=== PATIENT | male | born 1950 | race Caucasian/White ===

== ENCOUNTER 2018-01-10 09:18 | Inpatient (IN) | payer MEDICARE, OTHER ==
[~2018-01-10] VITALS: Ht 182.9 cm; Wt 147.5 kg
[~2018-01-10 09:18] MED LIST: ALBU2.5V5 NEB; ALLO100T PO; ALLO300T PO; ASCO500T3 PO; ASPI-630 PO; BUDE0.5A3 IH; BUDE10.2 IH; CETI5SOL PO; COLC0.6T34 PO; FOLI1TAB16 PO; FURO-68 PO; FURO-69 PO; HYDR-2868 PO; LISI-338 PO; LISI40TA PO; LOPE1LIQ7 PO; METO100T7 PO; METO25TA4 PO; MUPI1OIN NS; NICO2LOZ BC; NITR0.4T SL; NYST1000 PO; OXYC5CAP PO; OXYC5TAB95 PO; SERT100T PO; SERT50TA PO; THIA100T8 PO; UREA198C TP; ZINC30OI TP
[2018-01-10 09:51] LABS: BASO # 0.1 x10^3/uL (0.0-0.2); BASO % 1 % (0-3); EOS # 0.4 x10^3/uL (0.0-0.7); EOS % 1 % (0-3); HEMATOCRIT 37.7 % (39.0-53.0); LYMPH # 0.6 x10^3/uL (1.0-4.8); LYMPH % 2 % (24-48); MEAN CORPUSCULAR HEMOGLOBIN 28 pg (25-35); MEAN CORPUSCULAR HGB CONC 32 g/dL (31-37); MEAN CORPUSCULAR VOLUME 89 fL (79-100); MONO # 0.9 x10^3/uL (0.0-1.1); MONO % 4 % (0-9); NEUT # 24.2 x10^3uL (1.8-7.7); NEUT % 92 % (31-73); PLATELET COUNT 143 x10^3/uL (140-400); RED BLOOD COUNT 4.23 x10^6/uL (4.30-5.70); RED CELL DISTRIBUTION WIDTH 16.6 % (11.5-14.5); WHITE BLOOD COUNT 26.2 x10^3/uL (4.0-11.0)
[2018-01-10] MEDS ORDERED: methylPREDNISolone SOD SUCC PF 125 MG/2 ML VIAL. IV ONE (09:55)
[2018-01-10] MEDS ORDERED: IPRATRPIUM/ALBUTEROL 0.5/2.5MG 3 ML NEBU. NEB ONE (09:55)
--- NOTE | 2018-01-10 09:58 | RAD ---
EXAM: Chest one view. HISTORY: Shortness of breath, cough. COMPARISON: 03/21/2016. FINDINGS: A frontal view of the chest is obtained. There is rotation to the right. The inspiration is small with bibasilar atelectasis. There are calcified granulomas in subcarinal lymph nodes and the right base. There is no pneumothorax or pleural effusion. The heart is mildly enlarged. IMPRESSION: 1. Mild cardiomegaly. Small inspiration with basilar atelectasis.
[2018-01-10 09:59] LABS: BGAS PH 7.38 (7.35-7.46)
--- NOTE | 2018-01-10 10:04 | PHYS DOC ---
Past History Past Medical History: Anemia, Arthritis, CHF, COPD, Depression, Diverticulitis , Hypertension, Other Past Surgical History: Other Smoking: Cigarettes Alcohol Use: Occasionally Drug Use: None Adult General Chief Complaint Chief Complaint: SHORTNESS OF BREATH HPI HPI 67-year-old male patient resident of [facility] with 5 L of home oxygen and history of COPD and CHF brought in by EMS because of shortness of breath since this morning. Patient states he has had productive cough for the last few days and had intermittent episodes of substernal and left-sided chest pain during cough with radiation to his back. Patient complaining of chronic shortness of breath that getting worse since this morning. According to [facility] reports , patient had recent chest x-ray and labs and treated for 8 days of IM Rocephin that was finished couple days ago. Review of Systems Review of Systems Constitutional: Denies fever or chills [] Eyes: Denies change in visual acuity, redness, or eye pain [] HENT: Denies nasal congestion or sore throat [] Respiratory: Reports cough and shortness of breath Cardiovascular: No additional information not addressed in HPI [] GI: Denies abdominal pain, nausea, vomiting, bloody stools or diarrhea [] : Denies dysuria or hematuria [] Musculoskeletal: Denies back pain or joint pain [] Integument: Denies rash or skin lesions [] Neurologic: Denies headache, focal weakness or sensory changes [] Endocrine: Denies polyuria or polydipsia [] All other systems were reviewed and found to be within normal limits, except as documented in this note. Current Medications Current Medications Current Medications Medications (Trade) Dose Ordered Sig/Elke Start Time Stop Time Status Last Admin Dose Admin Albuterol/ Ipratropium (Duoneb) 3 ml 1X ONCE 01/10/18 09:55 01/10/18 09:56 DC 01/10/18 09:42 3 ML Ceftriaxone Sodium 1 gm/ Sodium Chloride 50 ml @ 100 mls/hr 1X ONCE 01/10/18 10:00 01/10/18 10:29 UNV Methylprednisolone Sodium Succinate (SOLU-Medrol 125MG VIAL) 125 mg 1X ONCE 01/10/18 09:55 01/10/18 09:56 DC 01/10/18 09:42 125 MG Allergies Allergies Allergies Coded Allergies Type Severity Reaction Last Updated Verified Penicillins Allergy Intermediate 11/19/15 Yes azithromycin Allergy Intermediate 11/19/15 Yes I S O L A T I O N *CONTACT* Allergy Unknown 11/20/15 Yes Physical Exam Physical Exam Constitutional: Moderate distress, non-toxic appearance, T-99.6 [] HENT: Normocephalic, atraumatic, bilateral external ears normal, oropharynx moist, no oral exudates, nose normal. [] Eyes: PERRLA, EOMI, conjunctiva normal, no discharge. [] Neck: Normal range of motion, no tenderness, supple, no stridor. [] Cardiovascular: Tachycardia, no murmur [] Lungs & Thorax: Moderate respiratory distress with intercostal retraction and tachypnea, bilateral wheezing and rhonchi, decrease of air movement Abdomen: Bowel sounds normal, soft, no tenderness, no masses, no pulsatile masses. [] Skin: Warm, dry, no erythema, no rash. [] Back: No tenderness, no CVA tenderness. [] Extremities: No tenderness, no cyanosis, no clubbing, ROM intact, bilateral lower extremity in old and dirty dressing and after opening the dressing, there was old eczematic skin without sign of cellulitis Neurologic: Alert and oriented X 3, normal motor function, normal sensory function, no focal deficits noted. [] Psychologic: Affect normal, judgement normal, mood normal. [] Current Patient Data Lab Results Laboratory Tests Test 01/10/18 09:26 01/10/18 09:40 White Blood Count 26.2 x10^3/uL (4.0-11.0) H Red Blood Count 4.23 x10^6/uL (4.30-5.70) L Hemoglobin 12.0 g/dL (13.0-17.5) L Hematocrit 37.7 % (39.0-53.0) L Mean Corpuscular Volume 89 fL (79-100) Mean Corpuscular Hemoglobin 28 pg (25-35) Mean Corpuscular Hemoglobin Concent 32 g/dL (31-37) Red Cell Distribution Width 16.6 % (11.5-14.5) H Platelet Count 143 x10^3/uL (140-400) Neutrophils (%) (Auto) 92 % (31-73) H Lymphocytes (%) (Auto) 2 % (24-48) L Monocytes (%) (Auto) 4 % (0-9) Eosinophils (%) (Auto) 1 % (0-3) Basophils (%) (Auto) 1 % (0-3) Neutrophils # (Auto) 24.2 x10^3uL (1.8-7.7) H Lymphocytes # (Auto) 0.6 x10^3/uL (1.0-4.8) L Monocytes # (Auto) 0.9 x10^3/uL (0.0-1.1) Eosinophils # (Auto) 0.4 x10^3/uL (0.0-0.7) Basophils # (Auto) 0.1 x10^3/uL (0.0-0.2) Platelet Estimate Pending Lactic Acid Level 1.8 mmol/L (0.4-2.0) Blood pH 7.38 (7.35-7.46) Blood Gas PCO2 54 mmHg (35-46) H Blood Gas PO2 73 mmHg (80-100) L Blood Gas HCO3 32 mmol/L (21-28) H Arterial Bld O2 Saturation (Calc) 94 % (92-99) FiO2 36 % EKG EKG EKG interpreted by me. EKG at 0920 showed sinus tachycardia at rate of 101, poor R-wave progress in anterolateral leads, no acute ST and T-wave abnormalities Radiology/Procedures Radiology/Procedures [ [address] [address] IMAGING REPORT Signed PATIENT: GLEN MAXWELL ACCOUNT: [id number] : 1950 LOCATION: ER AGE: 67 SEX: M EXAM STATUS: PRE ER ORD. PHYSICIAN: GUILHERME SLAUGHTER MD REASON: SOB PROCEDURE: PORTABLE CHEST 1V EXAM: Chest one view. HISTORY: Shortness of breath, cough. COMPARISON: 03/21/2016. FINDINGS: A frontal view of the chest is obtained. There is rotation to the right. The inspiration is small with bibasilar atelectasis. There are calcified granulomas in subcarinal lymph nodes and the right base. There is no pneumothorax or pleural effusion. The heart is mildly enlarged. IMPRESSION: 1. Mild cardiomegaly. Small inspiration with basilar atelectasis. DICTATED AND SIGNED BY: ADAIR ROD MD DATE: 01/10/18 0954 CC: GUILHERME SLAUGHTER MD; PCP,NO ~ ] Course & Med Decision Making Course & Med Decision Making Pertinent Labs and Imaging studies reviewed. (See chart for details) Evaluation of patient in ER showed 67-year-old male patient resident of [facility] with COPD brought in because of shortness of breath. Patient had tachycardia and low-grade fever with white count of 26,000 without hypotension or addition of lactic acid. Chest x-ray did not show infiltration. BNP was elevated. Levaquin was started in ER but patient was not treated with IV fluid because of CHF and no sign of hypotension. Patient had respiratory distress that partially improved but because of having mild intercostal retractions respiratory distress, BiPAP was ordered. Dr. Cortez was informed at 1015 and agreed with plan of admission with diagnosis of sepsis and COPD and CHF exacerbation. Dragon Disclaimer Dragon Disclaimer This electronic medical record was generated, in whole or in part, using a voice recognition dictation system. Departure Departure: Impression: Primary Impression: Sepsis Additional Impressions: COPD exacerbation CHF exacerbation Renal insufficiency Respiratory distress Disposition: ADMITTED INPATIENT (At 1015) Admitting Physician: Nevaeh Cortez Condition: GUARDED Referrals: PCP,NO (PCP) Critical Care Time Critical care time was [80] minutes exclusive of procedures. Problem Qualifiers GUILHERME SLAUGHTER MD Jan 10, 2018 10:04
[2018-01-10 10:08] LABS: ALBUMIN 3.2 g/dL (3.4-5.0); ALBUMIN/GLOBULIN RATIO 0.9 (1.0-1.7); CALCIUM 8.8 mg/dL (8.5-10.1); CREATININE 2.6 mg/dL (0.7-1.3); GFR 24.7; MAGNESIUM 1.6 mg/dL (1.8-2.4); POTASSIUM 4.2 mmol/L (3.5-5.1); TOTAL BILIRUBIN 0.4 mg/dL (0.2-1.0); TOTAL PROTEIN 6.9 g/dL (6.4-8.2)
[2018-01-10 10:16] LABS: BACTERIA,URINE 0 /HPF (0-FEW); BILIRUBIN,URINE NEG (NEG); CLARITY,URINE CLEAR; COLOR,URINE YELLOW; GLUCOSE,URINE NEG (NEG); NITRITE,URINE NEG (NEG); RBC,URINE 0 /HPF (0-2); SQUAMOUS EPITHELIAL CELL,UR OCC /LPF; UROBILINOGEN,URINE 0.2 mg/dL (0.2 mg/dL); WBC,URINE RARE /HPF (0-4)
[2018-01-10] MEDS ORDERED: cefTRIAXone IV Push 1 GM VIAL. IVP ONE (10:30)
[2018-01-10 10:32] LABS: % BANDS 2 % (0-9); % LYMPHS 5 % (24-48); % MONOS 5 % (0-10); % SEGS 88 % (35-66); PLT ESTIMATE ADEQUATE (ADEQUATE)
[2018-01-10] MEDS: IPRATRPIUM/ALBUTEROL 0.5/2.5MG 3 ML NEBU. NEB SCH ×3 (10:42→20:15)
[2018-01-10] MEDS ORDERED: MAGNESIUM SULFATE 2GM 50 ML IV ONE (12:00)
[2018-01-10] MEDS: ALBUTEROL SULFATE 2.5 MG/3 ML NEBU. NEB SCH ×2 (12:00→18:27)
[2018-01-10] MEDS ORDERED: ALBUTEROL SULFATE 2.5 MG/3 ML NEBU. NEB SCH (12:15)
[2018-01-10] MEDS ORDERED: oxyCODONE IR 5 MG TABLET PO PRN (12:15)
[2018-01-10] MEDS: IV NORMAL SALINE 1,000ML 1,000 ML IV SCH (12:24)
[2018-01-10] MEDS ORDERED: VANCOMYCIN 2 GM in IV NORMAL SALINE 500ML 500 ML IV ONE (13:00)
--- NOTE | 2018-01-10 13:17 | EKG ---
[address] [address] Test Date: 2018-01-10 Test Time: 09:30:11 Pat Name: GLEN MAXWELL Department: Room: Gender: M [employer]er: RAUDEL : 1950 Requested By: GUILHERME SLAUGHTER Order Number: [id number] Reading MD: Measurements Intervals [place] Rate: 101 P: AK: QRS: 45 QRSD: 76 T: 70 QT: 334 QTc: 434 Interpretive Statements IRREGULAR RHYTHM, NO P-WAVE FOUND QRS(T) CONTOUR ABNORMALITY CONSIDER ANTEROLATERAL MYOCARDIAL DAMAGE CONSIDER INFERIOR MYOCARDIAL DAMAGE POSSIBLY ABNORMAL ECG RI6.01 No previous ECG available for comparison
[2018-01-10] MEDS ORDERED: MEROPENEM 500 MG in IV NORMAL SALINE 50ML 50 ML IV SCH (14:00)
[2018-01-10] MEDS: oxyCODONE IR 5 MG TABLET PO SCH ×2 (14:00→21:57)
[2018-01-10] MEDS: NYSTATIN 100,000 UNITS/ML ORAL SUSPENSION 60ML BOTTLE. PO SCH ×2 (14:00→22:29)
[2018-01-10] MEDS: UREA 20% TP SCH ×2 (14:00→22:29)
[2018-01-10] MEDS ORDERED: methylPREDNISolone SOD SUCC PF 125 MG/2 ML VIAL. IV SCH (14:00)
[2018-01-10] MEDS: methylPREDNISolone SOD SUCC PF 40 MG/ML VIAL. IV SCH ×2 (14:10→21:40)
[2018-01-10] MEDS: VANCOMYCIN PER PHARMACY MC PRN (14:11)
--- NOTE | 2018-01-10 14:54 | HP ---
ADMIT DATE: 01/10/2018 HISTORY OF PRESENT ILLNESS: The patient is a 67-year-old male patient, resident at a shelter facility, who was brought to the Emergency Room with a complaint of shortness of breath, cough with yellowish sputum. He denied any chills, rigors or fever. He was evaluated in the Emergency Room and was found to have marked leukocytosis with a white cell count 26,000. His chemistry also showed that he has acute on chronic kidney injury and was admitted with COPD exacerbation, sepsis, the source of which is not clear. He has what seems to be bilateral lower extremity cellulitis. His chest x-ray apparently showed mild cardiomegaly, poor inspiratory effort with basal atelectasis. He was admitted with acute on chronic renal insufficiency and COPD exacerbation. PAST MEDICAL HISTORY: Significant for sepsis secondary to cellulitis and bacteremia from his lower legs. 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 Other medical problems include congestive heart failure, endocarditis with healed vegetation, severe right atrial enlargement, severe tricuspid regurgitation, mild mitral regurgitation, severe pulmonary hypertension with pulmonary artery pressure of 50-60 mm. He has had recurrent pleural effusion, chronic obstructive pulmonary disease, C. diff diarrhea, atrial fibrillation with rapid ventricular response, upper gastrointestinal bleed requiring 5 units of packed RBCs, acute kidney injury on chronic kidney disease. His baseline creatinine is 1.4-1.5, vitamin D deficiency, systolic and diastolic heart failure, hepatitis C, gout. He has septic arthritis and previous history of endocarditis. ALLERGIES: He is allergic to PENICILLIN and AZITHROMYCIN. FAMILY HISTORY: Noncontributory. SOCIAL HISTORY: He used to live in his own apartment, now he lives at [facility]. He is a heavy smoker and quit in September. He is also alcoholic. He is a . REVIEW OF SYSTEMS: As per history of present illness. PHYSICAL EXAMINATION: GENERAL: When I saw him on arrival to the ICU, the patient was clearly tachypneic, pale, but no jaundice, cyanosis or thyromegaly. No jugular venous distension. No lower limb edema. VITAL SIGNS: His heart rate was 89, blood pressure was 169/65, temperature was 98.5, respiratory rate 34, and oxygen saturation was 97% on 5 liters of oxygen by nasal cannula. HEAD, EYES, EARS, NOSE AND THROAT: Showed normocephalic, atraumatic. NECK: Supple. HEART: Showed normal first and second heart sounds with no gallop, rub or murmur. CHEST: Clear to auscultation. No crepitation or rhonchi. ABDOMEN: Distended, soft, nontender. No guarding or rigidity. No organomegaly. All hernial orifices intact. Bowel sounds normal. NEUROLOGIC: He was awake, alert, responding appropriately. Cranial nerves intact. EXTREMITIES: He moves upper extremities without difficulty, is mostly bed bound. He has a scooter. He is unable to walk. LABORATORY DATA: In the Emergency Room showed a white cell count 26,200, hemoglobin 12, hematocrit 38, MCV 89 and platelet count of 143,000. His arterial blood gases showed his pH was 7.38, pCO2 of 54, pO2 of 73, bicarbonate 32, and oxygen saturation was 94% on FiO2 of 36%. His chemistry showed serum sodium of 145, potassium 4.2, chloride 104, bicarbonate 34, anion gap of 7, BUN 72, creatinine 2.6, estimated GFR was 24 mL per minute, his glucose was 95, lactic acid was 1.8. Calcium was 8.8, magnesium 1.6. Total bilirubin, AST, ALT, alkaline phosphatase were normal. His beta natriuretic peptide was 6200. Total protein was 6.9, albumin was 3.2. His prothrombin time was 11.6, INR 1.1. Urinalysis was essentially unremarkable. His chest x-ray showed that he has poor inspiratory effort. There are calcified granulomas and subcarinal lymph nodes in the right base. There is no pneumothorax or pleural effusion. The heart is mildly enlarged. IMPRESSION AND PLAN: In summary, this is a 67-year-old male patient, a resident at [facility], who came in with shortness of breath. He was admitted with COPD exacerbation. Chest x-ray is normal. He has productive cough with yellowish sputum. He has also bilateral lower extremity cellulitis, acute on chronic kidney injury. I will start him on meropenem as well as vancomycin and continue all his other medication. Continue with bronchodilator and Solu-Medrol. Monitor him closely and repeat his labs tomorrow. JOSELUIS ZELAYA MD DR: CLAY/hakeem JOB#: [id number] / [id number]
[2018-01-10 15:36] VITALS: BP 183/70
[2018-01-10] MEDS ORDERED: ACETAMINOPHEN 325 MG TABLET PO PRN (16:00)
[2018-01-10] MEDS: MEROPENEM 500 MG in IV NORMAL SALINE 50ML 50 ML IV SCH ×2 (17:25→23:57)
[2018-01-10] MEDS ORDERED: METO50TA6 PO (18:21)
[2018-01-10] MEDS ORDERED: ARIP5TAB13 PO (18:21)
[2018-01-10] MEDS ORDERED: ESOM40CA PO (18:21)
[2018-01-10] MEDS ORDERED: IPRA3AMP NEB (18:21)
[2018-01-10] MEDS ORDERED: ACET325T9 PO (18:21)
[2018-01-10] MEDS ORDERED: BUME1TAB PO (18:21)
[2018-01-10] MEDS ORDERED: CARB15DR25 OP (18:21)
[2018-01-10] MEDS ORDERED: MENT5LOZ MM (18:21)
[2018-01-10] MEDS ORDERED: FERR325T14 PO (18:21)
[2018-01-10] MEDS ORDERED: UMEC62.5 IH (18:21)
[2018-01-10] MEDS ORDERED: MAGN2400 PO (18:21)
[2018-01-10 19:15] VITALS: BP 163/78
[2018-01-10] MEDS ORDERED: DICL100G18 TP (19:24)
[2018-01-10] MEDS ORDERED: NYST1000 PO (19:24)
[2018-01-10] MEDS ORDERED: CALC500T10 PO (19:24)
[2018-01-10] MEDS ORDERED: HYDR-971 PO (19:24)
[2018-01-10] MEDS ORDERED: CALC-515 PO (19:24)
[2018-01-10] MEDS ORDERED: SODI30SP NS (19:24)
[2018-01-10] MEDS ORDERED: CHOL500016 PO (19:24)
[2018-01-10] MEDS ORDERED: TIZA4TAB PO ×2 (19:24→19:32)
[2018-01-10] MEDS ORDERED: HYDROCORTISONE TAB PO (19:31)
[2018-01-10] MEDS: BUDESONIDE 0.5 MG/2 ML NEBU IH SCH (20:15)
[2018-01-10] MEDS: METOPROLOL TART IMMED RELEASE 25 MG TABLET PO SCH (21:56)
[2018-01-10] MEDS: HEPARIN PF for SUB-Q USE 5,000 UNIT/0.5 ML VIAL. SQ SCH (22:00)
[2018-01-10] MEDS: ASCORBIC ACID 500 MG TABLET PO SCH (22:30)
[2018-01-10] MEDS: MUPIROCIN 2% TOPICAL OINTMENT 22GM TUBE. TP SCH (22:30)
[2018-01-11 00:42] VITALS: BP 168/79
[2018-01-11] MEDS: ALBUTEROL SULFATE 2.5 MG/3 ML NEBU. NEB SCH ×4 (03:42→18:00)
[2018-01-11 05:20] VITALS: BP 152/83
[2018-01-11] MEDS: IPRATRPIUM/ALBUTEROL 0.5/2.5MG 3 ML NEBU. NEB SCH ×4 (05:34→20:09)
[2018-01-11] MEDS: HEPARIN PF for SUB-Q USE 5,000 UNIT/0.5 ML VIAL. SQ SCH ×3 (06:00→21:45)
[2018-01-11] MEDS: methylPREDNISolone SOD SUCC PF 40 MG/ML VIAL. IV SCH ×3 (06:26→21:44)
[2018-01-11] MEDS: MEROPENEM 500 MG in IV NORMAL SALINE 50ML 50 ML IV SCH ×3 (06:26→23:13)
[2018-01-11 06:42] LABS: HEMATOCRIT 35.1 % (39.0-53.0); HEMOGLOBIN 11.1 g/dL (13.0-17.5); RED BLOOD COUNT 3.93 x10^6/uL (4.30-5.70); RED CELL DISTRIBUTION WIDTH 16.1 % (11.5-14.5); WHITE BLOOD COUNT 12.1 x10^3/uL (4.0-11.0)
[2018-01-11 06:55] LABS: ALBUMIN 2.9 g/dL (3.4-5.0); ALBUMIN/GLOBULIN RATIO 0.8 (1.0-1.7); CALCIUM 8.8 mg/dL (8.5-10.1); CREATININE 2.7 mg/dL (0.7-1.3); GFR 23.6; POTASSIUM 4.4 mmol/L (3.5-5.1); TOTAL BILIRUBIN 0.3 mg/dL (0.2-1.0); TOTAL PROTEIN 6.7 g/dL (6.4-8.2)
[2018-01-11] MEDS: BUDESONIDE 0.5 MG/2 ML NEBU IH SCH ×2 (08:49→20:09)
[2018-01-11] MEDS: FOLIC ACID 1 MG TABLET PO SCH (08:53)
[2018-01-11] MEDS: ALLOPURINOL 100 MG TABLET. PO SCH (08:53)
[2018-01-11] MEDS: ARIPiprazole 5 MG TABLET PO SCH (08:53)
[2018-01-11] MEDS: SERTRALINE 50 MG TABLET. PO SCH (08:53)
[2018-01-11] MEDS: THIAMINE 100 MG TABLET. PO SCH (08:53)
[2018-01-11] MEDS: ASPIRIN 81 MG TAB.CHEW PO SCH (08:54)
[2018-01-11] MEDS: CETIRIZINE HCL 10 MG TABLET PO SCH (08:54)
[2018-01-11] MEDS: oxyCODONE IR 5 MG TABLET PO SCH ×3 (08:54→21:44)
[2018-01-11] MEDS: ASCORBIC ACID 500 MG TABLET PO SCH ×2 (08:54→21:44)
[2018-01-11] MEDS: NYSTATIN 100,000 UNITS/ML ORAL SUSPENSION 60ML BOTTLE. PO SCH ×3 (08:55→21:46)
[2018-01-11] MEDS: METOPROLOL TART IMMED RELEASE 25 MG TABLET PO SCH ×2 (08:55→21:40)
[2018-01-11] MEDS: UREA 20% TP SCH ×3 (08:56→21:46)
[2018-01-11] MEDS: MUPIROCIN 2% TOPICAL OINTMENT 22GM TUBE. TP SCH ×2 (08:56→21:46)
[2018-01-11] MEDS: IV NORMAL SALINE 1,000ML 1,000 ML IV SCH (08:58)
[2018-01-11] MEDS ORDERED: SERTRALINE 100 MG TABLET. PO SCH (09:00)
[2018-01-11 10:16] VITALS: BP 164/83
[2018-01-11] MEDS: VANCOMYCIN 2 GM in IV NORMAL SALINE 500ML 500 ML IV SCH (12:49)
[2018-01-11 16:12] VITALS: BP 180/81
--- NOTE | 2018-01-11 17:09 | RAD ---
Bilateral lower extremity arterial ultrasound, 01/11/2018: History: Bilateral leg redness and decreased pulses Duplex evaluation of the major arteries in both lower extremities was performed including grayscale, color-flow and spectral Doppler analysis. There are moderate scattered atherosclerotic plaques bilaterally. The right common femoral Doppler waveform is triphasic. At the mid right femoral artery level the Doppler waveforms become monophasic and quite dampened. No focal high-grade stenosis was identified, however, the degradation of the Doppler waveforms suggest significant underlying stenotic disease. The right popliteal artery is patent demonstrating a dampened monophasic Doppler waveform with a peak systolic velocity of 17 cm/s. In the right lower leg the peroneal, posterior tibial and anterior tibial arteries are patent demonstrating a similar week monophasic Doppler waveforms. The right dorsalis pedis artery is patent with a similar monophasic Doppler waveform. The left common femoral artery demonstrates a triphasic Doppler waveform. At the mid left femoral artery level the Doppler waveform becomes dampened and monophasic. The left popliteal artery is patent and demonstrates a triphasic Doppler waveform. Presumably, collateral flow is producing the improved left popliteal Doppler waveform compared to the mid and distal superficial femoral Doppler waveforms. A patent left posterior tibial artery is evident demonstrating a biphasic Doppler waveform. A patent left peroneal artery could not be visualized. The left anterior tibial artery is patent with a weak monophasic Doppler waveform. The left dorsalis pedis artery demonstrates a good amplitude biphasic Doppler waveform. IMPRESSION: 1. There is moderate scattered atherosclerotic plaquing bilaterally. 2. Degradation of the Doppler waveforms in the femoral arteries bilaterally at the mid femoral levels right worse than left, probably due to generalized atherosclerotic plaquing with multiple tandem stenoses. 3. Three-vessel arterial runoff in the right lower leg demonstrating weak monophasic Doppler waveforms. 4. 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 5. Relatively good distal blood flow in the left dorsalis pedis artery.
[2018-01-11 19:36] VITALS: BP 149/74
[2018-01-11] MEDS: LACTOBACILLUS RHAMNOSUS GG 1 CAPSULE. PO SCH (21:39)
[2018-01-11 23:14] VITALS: BP 180/71
--- NOTE | 2018-01-12 00:39 | PN ---
DATE: 01/11/2018 SUBJECTIVE: The patient is a resting slightly propped up in his recliner, in no apparent distress. On questioning him, he denied any complaint. Nursing staff did not voice any concern. OBJECTIVE: GENERAL: When I examined him, he looked well and was clearly in no apparent respiratory distress and slightly pale, but no jaundice, cyanosis, or thyromegaly. No jugular venous distension. No lower limb edema. VITAL SIGNS: His heart rate was 93, blood pressure was 152/83, temperature was 97.4, respiratory rate 22 and oxygen saturation was 96% on 2 liters of oxygen. HEAD, EYES, EARS, NOSE AND THROAT: Showed normocephalic, atraumatic. NECK: Supple. HEART: Showed normal first and second sounds. No gallop, rub or murmur. CHEST: Shows central trachea, equally reduced expansion, reduced air entry, vesicular breath sounds, very few scattered rhonchi, could not appreciate any crepitation. ABDOMEN: Markedly distended, soft, nontender. NEUROLOGIC: He was awake, alert, responding appropriately. Cranial nerves intact. He moves upper extremities to much good extent than lower extremities and mostly bed bound, chair bound. INTAKE AND OUTPUT: His intake was 1600, output was 1150. LABORATORY DATA: His white cell count was 12,000, hemoglobin 11, hematocrit 35, MCV 89 and platelet count of 120,000. His chemistry as of this morning showed a serum sodium of 143, potassium 4.4, chloride 104, bicarbonate 29, anion gap of 10, BUN 75, creatinine was 2.7, estimated GFR was 23 mL per minute, his glucose was 212, lactic acid was 1.8. Calcium was 8.8. Total bilirubin, AST, ALT, and alkaline phosphatase normal. Total protein 6.7, albumin was 2.9. ASSESSMENT: 1. Shortness of breath secondary to chronic obstructive pulmonary disease exacerbation. Chest x-ray is normal; however, his sputum is yellowish in color. 2. Bilateral lower extremity cellulitis. 3. Acute on chronic kidney injury. Given that he is allergic to penicillin and azithromycin, he was started on meropenem and vancomycin. PLAN: We will continue with IV antibiotic. Continue with bronchodilator and steroids. I will arrange for him to have arterial Doppler ultrasound. JOSELUIS ZELAYA MD DR: Ángel JOB#: [id number] / [id number]
[2018-01-12] MEDS: IPRATRPIUM/ALBUTEROL 0.5/2.5MG 3 ML NEBU. NEB SCH ×4 (04:07→21:27)
[2018-01-12] MEDS: ALBUTEROL SULFATE 2.5 MG/3 ML NEBU. NEB SCH ×4 (05:20→17:03)
[2018-01-12] MEDS: HEPARIN PF for SUB-Q USE 5,000 UNIT/0.5 ML VIAL. SQ SCH ×4 (06:00→22:00)
[2018-01-12 06:07] VITALS: BP 179/64
[2018-01-12] MEDS: methylPREDNISolone SOD SUCC PF 40 MG/ML VIAL. IV SCH ×3 (06:21→21:03)
[2018-01-12] MEDS: MEROPENEM 500 MG in IV NORMAL SALINE 50ML 50 ML IV SCH ×3 (06:22→22:41)
[2018-01-12 07:02] LABS: BASO % 0 % (0-3); EOS % 0 % (0-3); HEMATOCRIT 35.3 % (39.0-53.0); HEMOGLOBIN 11.1 g/dL (13.0-17.5); LYMPH # 0.3 x10^3/uL (1.0-4.8); LYMPH % 3 % (24-48); MEAN CORPUSCULAR HEMOGLOBIN 28 pg (25-35); MEAN CORPUSCULAR HGB CONC 31 g/dL (31-37); MEAN CORPUSCULAR VOLUME 90 fL (79-100); MONO # 0.2 x10^3/uL (0.0-1.1); MONO % 2 % (0-9); NEUT # 10.8 x10^3uL (1.8-7.7); NEUT % 95 % (31-73); PLATELET COUNT 127 x10^3/uL (140-400); RED BLOOD COUNT 3.94 x10^6/uL (4.30-5.70); RED CELL DISTRIBUTION WIDTH 16.8 % (11.5-14.5); WHITE BLOOD COUNT 11.4 x10^3/uL (4.0-11.0)
[2018-01-12 07:18] LABS: CALCIUM 8.5 mg/dL (8.5-10.1); CREATININE 2.5 mg/dL (0.7-1.3); GFR 25.8; POTASSIUM 4.7 mmol/L (3.5-5.1)
[2018-01-12] MEDS: ARIPiprazole 5 MG TABLET PO SCH (08:40)
[2018-01-12] MEDS: ASPIRIN 81 MG TAB.CHEW PO SCH (08:40)
[2018-01-12] MEDS: LACTOBACILLUS RHAMNOSUS GG 1 CAPSULE. PO SCH ×2 (08:40→20:58)
[2018-01-12] MEDS: FOLIC ACID 1 MG TABLET PO SCH (08:40)
[2018-01-12] MEDS: METOPROLOL TART IMMED RELEASE 25 MG TABLET PO SCH ×2 (08:41→21:00)
[2018-01-12] MEDS: THIAMINE 100 MG TABLET. PO SCH (08:41)
[2018-01-12] MEDS: oxyCODONE IR 5 MG TABLET PO SCH ×3 (08:41→20:59)
[2018-01-12] MEDS: ALLOPURINOL 100 MG TABLET. PO SCH (08:42)
[2018-01-12] MEDS: ASCORBIC ACID 500 MG TABLET PO SCH ×2 (08:42→21:00)
[2018-01-12] MEDS: CETIRIZINE HCL 10 MG TABLET PO SCH (08:42)
[2018-01-12] MEDS: SERTRALINE 50 MG TABLET. PO SCH (08:42)
[2018-01-12] MEDS: NYSTATIN 100,000 UNITS/ML ORAL SUSPENSION 60ML BOTTLE. PO SCH ×3 (08:46→21:22)
[2018-01-12] MEDS: BUDESONIDE 0.5 MG/2 ML NEBU IH SCH ×2 (09:15→21:27)
[2018-01-12] MEDS: UREA 20% TP SCH ×3 (09:58→21:22)
[2018-01-12] MEDS: MUPIROCIN 2% TOPICAL OINTMENT 22GM TUBE. TP SCH ×2 (09:58→21:22)
[2018-01-12 11:11] VITALS: BP 146/53
[2018-01-12 12:38] LABS: VANC TR 20.4 mcg/mL (10.0-20.0)
[2018-01-12] MEDS: VANCOMYCIN 2 GM in IV NORMAL SALINE 500ML 500 ML IV SCH (13:00)
[2018-01-12] MEDS: VANCOMYCIN PER PHARMACY MC PRN (13:16)
[2018-01-12] MEDS: VANCOMYCIN 1.75 GM in IV NORMAL SALINE 500ML 500 ML IV SCH (14:05)
[2018-01-12 15:56] VITALS: BP 152/78
[2018-01-12 19:22] VITALS: BP 164/92
[2018-01-13 00:10] VITALS: BP 163/89
--- NOTE | 2018-01-13 01:09 | PN ---
DATE: 01/12/2018 SUBJECTIVE: The patient is resting, slightly propped up in bed, in no apparent respiratory distress. He is awake, alert. On questioning him, he denied any complaints. His cultures showed the growth of gram-positive cocci in cluster suggestive of staph. However, the identification and sensitivity is not available yet. PHYSICAL EXAMINATION: GENERAL: When I examined him this afternoon, he looked well and was clearly in no apparent respiratory distress. VITAL SIGNS: Her heart rate was 82, blood pressure 146/53, temperature was 98.2, respiratory rate 20, and oxygen saturation was 98% on 4 liters of oxygen. HEAD, EYES, EARS, NOSE AND THROAT: Showed normocephalic, atraumatic. NECK: Supple. HEART: Showed normal first and second heart sounds with no gallop, rub or murmur. CHEST: Clear to auscultation. No crepitation or rhonchi. ABDOMEN: Distended, soft, nontender. No guarding or rigidity. No organomegaly. All hernial orifices are intact. Bowel sounds normal. NEUROLOGIC: He is awake, alert, hard of hearing, otherwise all other cranial nerves are intact. He moves upper extremities to much good extent than his lower extremities, mostly bed bound and chair bound. His intake over the last 24 hours was 1500, output was 1150. LABORATORY DATA: As of this morning, his serum sodium of 145, potassium 4.7, chloride 107, bicarbonate 30, anion gap of 8, BUN 78, creatinine 2.5. Estimated GFR was 26 mL per minute. His glucose was 72, calcium was 8.5. His white cell count was down to 11,400, hemoglobin 11, hematocrit 35, MCV 90 and platelet count of 127,000 with normal manual differential. ASSESSMENT: 1. Chronic obstructive pulmonary disease exacerbation. To continue with bronchodilator and steroids 2. Bilateral lower extremity cellulitis. To continue IV antibiotic. 3. Acute on chronic kidney injury, resolving. Plan is to continue with IV antibiotic. Continue bronchodilator and steroids. He did have bilateral lower extremity arterial Doppler, which showed there is moderate scattered atherosclerotic plaquing bilaterally, the gradation of the Doppler waveforms in the femoral arteries bilaterally at the mid former level, right worse than left. Three-vessel arterial runoff in the right lower leg demonstrating weak monophasic Doppler waveforms. 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 The plan is to wait for the result of the culture and sensitivity tomorrow, and decide on further management accordingly. JOSELUIS ZELAYA MD DR: CLAY/hakeem JOB#: [id number] / [id number]
[2018-01-13] MEDS: IPRATRPIUM/ALBUTEROL 0.5/2.5MG 3 ML NEBU. NEB SCH ×4 (04:46→21:34)
[2018-01-13 05:35] VITALS: BP 148/74
[2018-01-13] MEDS: ALBUTEROL SULFATE 2.5 MG/3 ML NEBU. NEB SCH ×4 (05:37→15:46)
[2018-01-13] MEDS: HEPARIN PF for SUB-Q USE 5,000 UNIT/0.5 ML VIAL. SQ SCH ×3 (06:00→22:00)
[2018-01-13] MEDS: methylPREDNISolone SOD SUCC PF 40 MG/ML VIAL. IV SCH ×2 (06:08→14:07)
[2018-01-13] MEDS: MEROPENEM 500 MG in IV NORMAL SALINE 50ML 50 ML IV SCH ×2 (06:09→14:05)
[2018-01-13 06:45] LABS: BASO % 0 % (0-3); EOS % 0 % (0-3); HEMATOCRIT 34.7 % (39.0-53.0); LYMPH # 0.4 x10^3/uL (1.0-4.8); LYMPH % 3 % (24-48); MEAN CORPUSCULAR HEMOGLOBIN 28 pg (25-35); MEAN CORPUSCULAR HGB CONC 32 g/dL (31-37); MEAN CORPUSCULAR VOLUME 90 fL (79-100); MONO # 0.3 x10^3/uL (0.0-1.1); MONO % 3 % (0-9); NEUT % 94 % (31-73); PLATELET COUNT 137 x10^3/uL (140-400); RED BLOOD COUNT 3.87 x10^6/uL (4.30-5.70); RED CELL DISTRIBUTION WIDTH 16.1 % (11.5-14.5); WHITE BLOOD COUNT 10.7 x10^3/uL (4.0-11.0)
[2018-01-13 06:57] LABS: ALBUMIN 2.7 g/dL (3.4-5.0); ALBUMIN/GLOBULIN RATIO 0.8 (1.0-1.7); CALCIUM 8.2 mg/dL (8.5-10.1); CREATININE 2.4 mg/dL (0.7-1.3); GFR 27.1; POTASSIUM 5.1 mmol/L (3.5-5.1); TOTAL BILIRUBIN 0.3 mg/dL (0.2-1.0); TOTAL PROTEIN 6.3 g/dL (6.4-8.2)
[2018-01-13] MEDS: ASPIRIN 81 MG TAB.CHEW PO SCH (07:58)
[2018-01-13] MEDS: ASCORBIC ACID 500 MG TABLET PO SCH ×2 (07:59→21:35)
[2018-01-13] MEDS: CETIRIZINE HCL 10 MG TABLET PO SCH (07:59)
[2018-01-13] MEDS: LACTOBACILLUS RHAMNOSUS GG 1 CAPSULE. PO SCH ×2 (07:59→21:33)
[2018-01-13] MEDS: oxyCODONE IR 5 MG TABLET PO SCH ×3 (08:01→21:35)
[2018-01-13] MEDS: METOPROLOL TART IMMED RELEASE 25 MG TABLET PO SCH ×2 (08:02→21:34)
[2018-01-13] MEDS: ARIPiprazole 5 MG TABLET PO SCH (08:02)
[2018-01-13] MEDS: ALLOPURINOL 100 MG TABLET. PO SCH (08:03)
[2018-01-13] MEDS: FOLIC ACID 1 MG TABLET PO SCH (08:03)
[2018-01-13] MEDS: THIAMINE 100 MG TABLET. PO SCH (08:03)
[2018-01-13] MEDS: NYSTATIN 100,000 UNITS/ML ORAL SUSPENSION 60ML BOTTLE. PO SCH ×3 (08:04→21:35)
[2018-01-13] MEDS: SERTRALINE 50 MG TABLET. PO SCH (08:04)
[2018-01-13] MEDS: UREA 20% TP SCH ×3 (08:05→21:36)
[2018-01-13] MEDS: MUPIROCIN 2% TOPICAL OINTMENT 22GM TUBE. TP SCH ×2 (08:05→21:35)
[2018-01-13] MEDS: BUDESONIDE 0.5 MG/2 ML NEBU IH SCH ×2 (09:16→21:34)
[2018-01-13 11:12] VITALS: BP 167/89
[2018-01-13] MEDS: VANCOMYCIN 1.75 GM in IV NORMAL SALINE 500ML 500 ML IV SCH (14:06)
[2018-01-13 14:29] VITALS: BP 172/83
[2018-01-13 18:48] VITALS: BP 178/87
--- NOTE | 2018-01-13 22:37 | PN ---
DATE: 01/13/2018 SUBJECTIVE: The patient is resting slightly propped up in bed, in no apparent distress. He did complain that he gained a lot of weight and he is short of breath, although his chest x-ray did not show any cardiomegaly nor did it show any pulmonary congestion or pneumothorax or pleural effusion. His blood culture has grown Staphylococcus aureus; however, the sensitivity still pending at the time of this dictation. PHYSICAL EXAMINATION: GENERAL: When I examined him today, he looked well and was clearly in no apparent respiratory distress, pale, but not jaundiced, cyanosis, or thyromegaly. No jugular venous distension. No lower limb edema. VITAL SIGNS: His heart rate was 88, blood pressure was 172/83, temperature was 98, respiratory rate 22 and oxygen saturation was 98% on 4 liters of oxygen. HEAD, EYES, EARS, NOSE AND THROAT: Showed normocephalic, atraumatic. NECK: Supple. HEART: Showed normal first and second heart sounds with no gallop, rub or murmur. CHEST: Clear to auscultation. No crepitation or rhonchi. ABDOMEN: Distended, soft, nontender. No guarding or rigidity. No organomegaly. Hernial orifice intact. Bowel sounds normal. NEUROLOGIC: He is hard of hearing, but otherwise all cranial nerves intact. He moves upper extremities to much good extent than lower extremities, mostly bedbound and chair bound. His intake over the last 24 hours was 3293, output was 1600. LABORATORY DATA: As of this morning showed a serum sodium 143, potassium 5.1, chloride 107, bicarbonate 31, anion gap of 5, BUN 85, creatinine 2.4. Estimated GFR was 27 mL per minute. His glucose was 189. Calcium was 8.2. Total bilirubin, AST, ALT, alkaline phosphatase were normal. Total protein was 6.3. Albumin 2.7. His white cell count is 10,700, hemoglobin 11, hematocrit 34, MCV 90 and platelet count of 137,000 and his blood culture has grown Staph aureus; however, the sensitivity still pending and the lab did not specify whether this is methicillin-resistant staph. ASSESSMENT: 1. Chronic obstructive pulmonary disease exacerbation to continue with bronchodilator and steroids. I cut down his Solu-Medrol to 40 mg. 2. Bilateral lower extremity cellulitis. I discontinued meropenem as the bacteria Staph aureus. Continue with vancomycin. 3. Acute on chronic kidney injury, resolving. PLAN: To continue with IV vancomycin. I discontinued his meropenem, cut down his steroids. Await the result of the sensitivity. JOSELUIS ZELAYA MD DR: CLAY/hakeem JOB#: [id number] / [id number]
[2018-01-13 23:50] VITALS: BP 165/83
[2018-01-14] MEDS: methylPREDNISolone SOD SUCC PF 40 MG/ML VIAL. IV SCH ×2 (02:46→14:34)
[2018-01-14] MEDS: ALBUTEROL SULFATE 2.5 MG/3 ML NEBU. NEB SCH ×3 (04:42→11:07)
[2018-01-14] MEDS: HEPARIN PF for SUB-Q USE 5,000 UNIT/0.5 ML VIAL. SQ SCH ×2 (04:42→14:00)
[2018-01-14] MEDS: IPRATRPIUM/ALBUTEROL 0.5/2.5MG 3 ML NEBU. NEB SCH ×2 (04:50→10:55)
[2018-01-14 05:45] VITALS: BP 160/88
[2018-01-14 06:32] LABS: CALCIUM 8.4 mg/dL (8.5-10.1); CREATININE 2.4 mg/dL (0.7-1.3); GFR 27.1; POTASSIUM 4.9 mmol/L (3.5-5.1)
[2018-01-14 06:37] LABS: HEMATOCRIT 38.3 % (39.0-53.0); HEMOGLOBIN 12.1 g/dL (13.0-17.5); RED BLOOD COUNT 4.27 x10^6/uL (4.30-5.70); RED CELL DISTRIBUTION WIDTH 16.3 % (11.5-14.5); WHITE BLOOD COUNT 8.2 x10^3/uL (4.0-11.0)
[2018-01-14] MEDS: ARIPiprazole 5 MG TABLET PO SCH (08:12)
[2018-01-14] MEDS: ASPIRIN 81 MG TAB.CHEW PO SCH (08:13)
[2018-01-14] MEDS: LACTOBACILLUS RHAMNOSUS GG 1 CAPSULE. PO SCH (08:13)
[2018-01-14] MEDS: FOLIC ACID 1 MG TABLET PO SCH (08:13)
[2018-01-14] MEDS: METOPROLOL TART IMMED RELEASE 25 MG TABLET PO SCH (08:13)
[2018-01-14] MEDS: NYSTATIN 100,000 UNITS/ML ORAL SUSPENSION 60ML BOTTLE. PO SCH ×2 (08:14→14:35)
[2018-01-14] MEDS: oxyCODONE IR 5 MG TABLET PO SCH ×2 (08:14→14:35)
[2018-01-14] MEDS: THIAMINE 100 MG TABLET. PO SCH (08:15)
[2018-01-14] MEDS: CETIRIZINE HCL 10 MG TABLET PO SCH (08:15)
[2018-01-14] MEDS: ALLOPURINOL 100 MG TABLET. PO SCH (08:15)
[2018-01-14] MEDS: SERTRALINE 50 MG TABLET. PO SCH (08:15)
[2018-01-14] MEDS: ASCORBIC ACID 500 MG TABLET PO SCH (08:15)
[2018-01-14] MEDS: MUPIROCIN 2% TOPICAL OINTMENT 22GM TUBE. TP SCH (08:16)
[2018-01-14] MEDS: UREA 20% TP SCH ×2 (08:17→14:00)
--- NOTE | 2018-01-14 08:46 | RAD ---
Indication: Short of air. Technique: Upright portable chest radiograph was obtained. Comparison is from 3 days earlier. Findings: There is basilar atelectasis and or infiltrate. This is greater on the right. Allowing for portable technique and low lung volumes, the heart is not enlarged and there is no obvious heart failure. There is granulomatous disease. Leads overlie the patient. Impression: Basilar atelectasis and or infiltrate, greater on the right. This is similar to prior.
[2018-01-14] MEDS: BUDESONIDE 0.5 MG/2 ML NEBU IH SCH (10:55)
[2018-01-14 11:25] VITALS: BP 177/95
[2018-01-14 12:53] LABS: VANC TR 31.7 mcg/mL (10.0-20.0)
[2018-01-14] MEDS: VANCOMYCIN 1.75 GM in IV NORMAL SALINE 500ML 500 ML IV SCH (12:56)
[2018-01-14] MEDS: VANCOMYCIN PER PHARMACY MC PRN (13:12)
[2018-01-14] MEDS ORDERED: LINE600T PO (14:24)
[2018-01-14 15:00] VITALS: BP 183/90
--- NOTE | 2018-01-14 17:02 | DS ---
DATE OF DISCHARGE: 01/14/2018 HOSPITAL COURSE: The is a 67-year-old male patient, a resident at [facility], who was brought to the Emergency Room with a complaint of shortness of breath, cough, with yellow sputum. He denied any chills, rigors, or fever. He was evaluated in the Emergency Room and was found to have marked leukocytosis with a white cell count of 26,000. His chemistry showed he has [id number] kidney injury and was admitted with COPD exacerbation. He has bilateral lower extremity cellulitis. However, his chest x-ray showed only mild cardiomegaly, but no evidence of any infiltrate or heart failure. He was started empirically on IV antibiotic in the form of vancomycin and also steroids and bronchodilators. His blood culture eventually has grown methicillin-resistant Staphylococcus aureus sensitive to ciprofloxacin, gentamicin, levofloxacin, linezolid as well as trimethoprim sulfamethoxazole and vancomycin. His vancomycin trough level today was high at 31.7. The patient is doing very well. His white cell count came down from 26,000 to 8200. He remained hemodynamically stable, afebrile, and a decision was made to discharge him back to [facility]. Given his impaired kidney function, I opted to start him on Zyvox to finish the course of treatment. He has bilateral lower extremities with multiple scratch aguiar, probably the site of the portal entry to his bacteria. PHYSICAL EXAMINATION: GENERAL: When I examined today, he looked well and was clearly in no apparent respiratory distress, pale, but no jaundice, cyanosis, or thyromegaly. No jugular venous distension. No limb edema. VITAL SIGNS: His heart rate was 77, blood pressure was 177/95, temperature was 97.5, respiratory rate 20, and oxygen saturation was 96%. He is on 2.5 liters of oxygen. HEAD, EYES, EARS, NOSE, AND THROAT: Showed normocephalic, atraumatic. NECK: Supple. HEART: Showed normal first and second heart sounds with no gallop, rub, or murmur. CHEST: Clear to auscultation. No crepitation or rhonchi. ABDOMEN: Distended, soft, nontender. No guarding or rigidity. No organomegaly. Hernial orifice intact. Bowel sounds normal. NEUROLOGIC: He was awake, alert, responding appropriately. Cranial nerves intact. He moves his upper extremities without difficulty. He is mostly bedbound and chair bound as he has functional paraplegia. His intake over the last 24 hours was 3500, output was 1250. LABORATORY DATA: His lab work as of this morning showed a white cell count of 8200, hemoglobin 12, hematocrit 38, MCV 90, and platelet count 245,000. His chemistry showed a serum sodium of 142, potassium 4.9, chloride 105, bicarbonate 29, anion gap of 8, BUN 83, creatinine 2.4, estimated GFR was 27 mL per minute. His glucose was 219. Calcium was 8.4. His toxic screen showed his vancomycin trough level was high at 31.7. His blood culture showed growth of methicillin-resistant Staphylococcus aureus sensitive to ciprofloxacin, gentamicin, levofloxacin, linezolid, vancomycin, and trimethoprim sulfamethoxazole. DISCHARGE MEDICATIONS: He was discharged back to [facility] to continue on linezolid 600 mg twice a day for 10 days and to continue all his other home medication. We did bilateral lower extremity Doppler ultrasound, which showed that there is moderate scattered atherosclerotic plaquing bilaterally, degradation of the Doppler waveform in the femoral arteries bilaterally at the mid femoral level, right worse than left, probably due to generalized atherosclerotic plaquing with multiple tandem stenosis. Three-vessel arteries runoff in the right leg demonstrating weak monophasic Doppler waveforms, peroneal artery occlusion in the left lower leg, relatively good distal blood flow in the left dorsalis pedis arteries. Given that he has an infection, I opted to discharge him back to [facility] to continue oral treatment. He needs to be seen by a vascular surgeon to see if he is a candidate for revascularization. JOSELUIS ZELAYA MD DR: CLAY/hakeem JOB#: [id number] / [id number]
== END 2018-01-14 15:25 | disposition home or self-care (01) | DRG 871 ==
LOC: ER 09:18 → ICU 11:19 → 1 SOUTH 18:33
PROVIDERS: ADMIT Internal Medicine; ATTEND Internal Medicine
DX: A41.9 Sepsis, unspecified organism (principal); N17.0 Acute kidney failure with tubular necrosis; I50.43 Acute on chronic combined systolic (congestive) and diastolic (congestive) heart failure; L03.115 Cellulitis of right lower limb; I13.0 Hypertensive heart and chronic kidney disease with heart failure and stage 1 through stage 4 chronic kidney disease, or unspecified chronic kidney disease; J44.1 Chronic obstructive pulmonary disease with (acute) exacerbation; L03.116 Cellulitis of left lower limb; J98.11 Atelectasis; F10.20 Alcohol dependence, uncomplicated; B95.62 Methicillin resistant Staphylococcus aureus infection as the cause of diseases classified elsewhere; I27.20 Pulmonary hypertension, unspecified; I48.91 Unspecified atrial fibrillation; I70.202 Unspecified atherosclerosis of native arteries of extremities, left leg; I70.201 Unspecified atherosclerosis of native arteries of extremities, right leg; N18.9 Chronic kidney disease, unspecified; F32.9 Major depressive disorder, single episode, unspecified; M10.9 Gout, unspecified; M19.90 Unspecified osteoarthritis, unspecified site; Z87.891 Personal history of nicotine dependence; Z88.0 Allergy status to penicillin; Z88.1 Allergy status to other antibiotic agents; Z74.01 Bed confinement status
CPT/HCPCS: 36415; 71045; 80048; 80053; 80202; 81001; 82553; 82803; 83605; 83735; 83880; 84484; 85007; 85025; 85027; 85610; 87040; 87205; 87641; 93005; 93923; 94640; 96365; 96375; 99292; 99406; J1956; J2185; J2920; J2930; J3370; J3475; J7040; J7613; J7620; J7626; 99291-25; J7030

== ENCOUNTER 2018-02-19 10:46 | Inpatient (IN) | payer MEDICARE, OTHER ==
[~2018-02-19] VITALS: Ht 182.9 cm; Wt 164.8 kg
[2018-02-19] VITALS (9 sets, daily range): BP systolic 122–171; BP diastolic 46–85
[~2018-02-19 10:46] MED LIST changes: +ACET325T9 PO; +ARIP5TAB13 PO; +BUME1TAB PO; +CALC-515 PO; +CALC500T10 PO; +CARB15DR25 OP; +CHOL500016 PO; +DICL100G18 TP; +ESOM40CA PO; +FERR325T14 PO; +HYDR-971 PO; +HYDROCORTISONE TAB PO; +IPRA3AMP NEB; +LINE600T PO; +MAGN2400 PO; +MENT5LOZ MM; +METO50TA6 PO; +SODI30SP NS; +TIZA4TAB PO; +UMEC62.5 IH
[2018-02-19] MEDS ORDERED: IPRATRPIUM/ALBUTEROL 0.5/2.5MG 3 ML NEBU. NEB ONE (11:00)
[2018-02-19] MEDS ORDERED: FUROSEMIDE 40 MG/4 ML VIAL IVP ONE ×2 (11:00→12:45)
--- NOTE | 2018-02-19 11:15 | PHYS DOC ---
Past History Past Medical History: Anemia, CHF, COPD, Depression, Hypertension, Renal Failure, Other Past Surgical History: Other Smoking: Cigarettes Alcohol Use: None Drug Use: None Adult General Chief Complaint Chief Complaint: SHORTNESS OF BREATH HPI HPI 67-year-old male presents via EMS from nursing facility for shortness of breath. Patient states he's been feeling increasingly short of breath for last 2 months, but is become much worse last few days. Patient has a history of COPD , CHF, [place], diabetes, and hep C. Patient is on 2 L oxygen at baseline at home. He is maintaining adequate oxygenation on the same 2 L at this time. Has a heart rate up to 150. Patient denies fever or chills at home. He has noticed significant increase in his peripheral edema "all over". The patient has been using nebulized breathing treatments. He is taking these and his other medications as prescribed. The patient does not weigh himself daily. Review of Systems Review of Systems Constitutional: Denies fever or chills [] Eyes: Denies change in visual acuity, redness, or eye pain [] HENT: Denies nasal congestion or sore throat [] Respiratory: Short of breath[] Cardiovascular: Tachycardia[] GI: Denies abdominal pain, nausea, vomiting, bloody stools or diarrhea [] : Denies dysuria or hematuria [] Musculoskeletal: Denies back pain or joint pain [] Integument: Denies rash or skin lesions [] Neurologic: Denies headache, focal weakness or sensory changes [] Endocrine: Denies polyuria or polydipsia [] All other systems were reviewed and found to be within normal limits, except as documented in this note. Allergies Allergies Allergies Coded Allergies Type Severity Reaction Last Updated Verified Penicillins Allergy Intermediate 11/19/15 Yes azithromycin Allergy Intermediate 11/19/15 Yes I S O L A T I O N *CONTACT* Allergy Unknown 11/20/15 Yes Physical Exam Physical Exam Constitutional: Well developed, well nourished, mild acute distress, non-toxic appearance. [] HENT: Normocephalic, atraumatic, bilateral external ears normal, oropharynx moist, no oral exudates, nose normal. [] Eyes: PERRLA, EOMI, conjunctiva normal, no discharge. [] Neck: Normal range of motion, no tenderness, supple, no stridor. [] Cardiovascular: A. fib, tachycardia, rate 145[] Lungs & Thorax: Bilateral decreased breath sounds and expiratory wheezing[] Abdomen: Morbidly obese, edematous[] Skin: Warm, dry, no erythema, no rash. [] Back: No tenderness, no CVA tenderness. [] Extremities: 3+ pitting edema of the entire bilateral lower extremities. Edema continues in the abdomen. [] Neurologic: Alert and oriented X 3, normal motor function, normal sensory function, no focal deficits noted. [] Psychologic: Affect normal, judgement normal, mood normal. [] EKG EKG A. fib, rate 145, no ST elevations or depressions.[] Radiology/Procedures Radiology/Procedures Exam: AP portable chest History: Shortness of breath. Comparison: January 13, 2018. Findings: Patient is rotated. Cardiac silhouette is probably within normal limits for size given positioning. No pneumothorax or large pleural effusion is seen. Old granulomatous disease of the chest is noted. There is accentuation of interstitial markings, similar to previous study. Impression: 1. Accentuation of interstitial markings, similar to previous study. Findings could represent fibrotic change versus mild interstitial edema. Electronically signed by: Earnest Llanos MD (02/19/2018 11:24 AM) [facility][] Course & Med Decision Making Course & Med Decision Making Pertinent Labs and Imaging studies reviewed. (See chart for details) Patient's x-ray shows increased interstitial markings. The patient has likely fibrotic change which makes evaluation of edema difficult. His labs are significant for a proBNP over 9000 and a creatinine of 2.9. Review of his chart shows that his creatinine is typically 2.4-2.6. His hemoglobin was 8.9 and it was 12.1 within the last 6 weeks. There is no obvious sign of bleeding. The patient doesn't complain of any bleeding, dark stool, or coffee-ground emesis. We will order Hemoccult. I discussed the patient with Dr. Cortez and he agreed with loading the patient with digoxin for his heart rate and then admitting the patient to the ICU for further management. The patient is in agreement with this plan. The patient was given a total of 80 mg of Lasix and a Jones was placed prior to admission. I spent greater than 35 minutes of critical care time on this patient including but not limited to nebulizer treatment, multiple doses of Lasix IV, evaluation of EKG, x-ray, labs and coordination of care. [] Dragon Disclaimer Dragon Disclaimer This electronic medical record was generated, in whole or in part, using a voice recognition dictation system. Departure Departure: Referrals: GARCIA LUCIO (PCP) LATOSHA TERRY DO February 19, 2018 11:15
[2018-02-19 11:18] LABS: BASO # 0.1 x10^3/uL (0.0-0.2); BASO % 1 % (0-3); EOS # 0.2 x10^3/uL (0.0-0.7); EOS % 3 % (0-3); HEMATOCRIT 28.2 % (39.0-53.0); HEMOGLOBIN 8.9 g/dL (13.0-17.5); LYMPH # 0.5 x10^3/uL (1.0-4.8); LYMPH % 7 % (24-48); MEAN CORPUSCULAR HEMOGLOBIN 28 pg (25-35); MEAN CORPUSCULAR HGB CONC 32 g/dL (31-37); MEAN CORPUSCULAR VOLUME 88 fL (79-100); MONO # 0.5 x10^3/uL (0.0-1.1); MONO % 7 % (0-9); NEUT # 6.1 x10^3uL (1.8-7.7); NEUT % 83 % (31-73); PLATELET COUNT 169 x10^3/uL (140-400); RED BLOOD COUNT 3.21 x10^6/uL (4.30-5.70); RED CELL DISTRIBUTION WIDTH 16.7 % (11.5-14.5); WHITE BLOOD COUNT 7.4 x10^3/uL (4.0-11.0)
--- NOTE | 2018-02-19 11:27 | RAD ---
Exam: AP portable chest History: Shortness of breath. Comparison: January 13, 2018. Findings: Patient is rotated. Cardiac silhouette is probably within normal limits for size given positioning. No pneumothorax or large pleural effusion is seen. Old granulomatous disease of the chest is noted. There is accentuation of interstitial markings, similar to previous study. Impression: 1. Accentuation of interstitial markings, similar to previous study. Findings could represent fibrotic change versus mild interstitial edema. Electronically signed by: Earnest Llanos MD (02/19/2018 11:24 AM) [facility]
[2018-02-19 11:28] LABS: ALBUMIN 2.4 g/dL (3.4-5.0); ALBUMIN/GLOBULIN RATIO 0.7 (1.0-1.7); CALCIUM 7.9 mg/dL (8.5-10.1); CREATININE 2.9 mg/dL (0.7-1.3); GFR 21.7; POTASSIUM 3.9 mmol/L (3.5-5.1); TOTAL BILIRUBIN 0.2 mg/dL (0.2-1.0)
[2018-02-19] MEDS ORDERED: DIGOXIN IV 500 MCG/2 ML AMPUL. IV ONE ×3 (11:30→12:30)
[2018-02-19 11:35] LABS: BILIRUBIN,URINE NEG (NEG); CLARITY,URINE CLOUDY; COLOR,URINE YELLOW; GLUCOSE,URINE NEG (NEG); NITRITE,URINE NEG (NEG); UROBILINOGEN,URINE 0.2 mg/dL (0.2 mg/dL)
[2018-02-19 11:36] LABS: AMORPHOUS SEDIMENT,UR PRESENT /HPF; BACTERIA,URINE FEW /HPF (0-FEW); SQUAMOUS EPITHELIAL CELL,UR OCC /LPF; WBC,URINE OCC /HPF (0-4)
--- NOTE | 2018-02-19 11:58 | EKG ---
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
[2018-02-19 12:31] LABS: FECAL OB PT POSITIVE (NEG)
[2018-02-19] MEDS ORDERED: ONDANSETRON PF 4 MG/2 ML VIAL. IV PRN (13:45)
[2018-02-19] MEDS ORDERED: ONDANSETRON ODT 4 MG TAB.RAPDIS PO PRN (14:15)
[2018-02-19] MEDS ORDERED: SERT25TA PO (15:15)
[2018-02-19] MEDS ORDERED: HYDR10TA PO (15:15)
[2018-02-19] MEDS ORDERED: NYST15PO9 TP (15:15)
[2018-02-19] MEDS ORDERED: LEVO500T59 PO (15:16)
[2018-02-19] MEDS ORDERED: CALCIUM CARB PO PRN (15:30)
[2018-02-19] MEDS ORDERED: MAGNESIUM HYDROX PO PRN (15:30)
[2018-02-19] MEDS ORDERED: ACETAMINOPHEN 325 MG TABLET PO PRN (15:30)
[2018-02-19] MEDS ORDERED: DICLOFENAC SODIUM 1% TOPICAL GEL 100GM TUBE. TP PRN (15:30)
[2018-02-19] MEDS ORDERED: CALCIUM CARBONATE 500 MG TAB.CHEW PO PRN (15:45)
[2018-02-19] MEDS ORDERED: IPRATRPIUM/ALBUTEROL 0.5/2.5MG 3 ML NEBU. NEB SCH (16:00)
[2018-02-19] MEDS ORDERED: HYDROcodone/APAP 5/325MG 1 TAB TABLET PO PRN (16:00)
[2018-02-19] MEDS ORDERED: POLYVINYL ALCOHOL 1.4% OPHTH SOLUTION 15ML BOTTLE. OU PRN ×2 (16:00→18:00)
[2018-02-19] MEDS: IPRATRPIUM/ALBUTEROL 0.5/2.5MG 3 ML NEBU. NEB SCH ×3 (16:32→20:32)
[2018-02-19] MEDS ORDERED: AMIODARONE 900 MG in IV DEXTROSE 5% 500 ML IV ONE (17:15)
--- NOTE | 2018-02-19 17:15 | PDOC2 ---
CONSULT Date of Admission DATE: 02/19/18 TIME: 16:28 Reason for Consult: atrial fibrillation RVR Problem List Problems Medical Problems: (1) Anemia of unknown etiology Status: Acute (2) CHF exacerbation Status: Acute (3) Uncontrolled atrial fibrillation Status: Acute History of Present Illness Mr Ocasio is a 67 year old male resident of [facility] who is essentially bed bound and with a complex medical history. He reports having been off his diuretic since his last hospitalization with increasing edema and dyspnea over the last 7 to 10 days. He denies any visits with cardiology or renal as outpatient . He reports chronic pain in his back, knees and shoulders. He denies any chest pain, palpitations, lightheadedness or syncope. He is a fairly poor historian and much of the medical history is obtained from the chart. Past Medical History 10/2015 Normal LV systolic function and wall motion. EF 65% Dilated RV with volume overload. PAS 39 mmHg biatrial enlargement No significant valvular abnormalities. Congestive heart failure. sepsis with MRSA bacteremia last month Endocarditis with healed vegetation. Severe right atrial enlargement. Severe tricuspid regurgitation. Mild mitral regurgitation. Severe pulmonary hypertension. Pressures reported previously to be in the 50 to 60 mm range 39 mmHg by echo in 2016 Recurrent pleural effusion, right-sided loculated. Chronic obstructive pulmonary disease. C. difficile diarrhea Atrial fibrillation with RVR He has a history of upper gastrointestinal bleed, requiring 5 units of packed cells. Acute kidney injury on chronic kidney disease, stage 3, was improving. His baseline creatinine appears to be about 2.5 over the last 2 years. Vitamin D deficiency. Systolic and diastolic heart failure. Hepatitis C. Gout. Septic arthritis and previous history of endocarditis. severe sepsis secondary to cellulitis and bacteremia of his lower legs with MRSA , VRE, and alcaligenes. peripheral vascular disease diagnosed by doppler during last hospitalization and vascular surgery consult was planned for outpatient as he was septic at the time. Past Surgical History Past Surgical History unknown Family History unkown Social History [facility], bedbound, alcoholic, former heavy smoker Current Medications Current Medications Furosemide (Lasix) 40 mg 1X ONCE IVP Last administered on 02/19/18at 11:21; Start 02/19/18 at 11:00; Stop 02/19/18 at 11:09; Status DC Albuterol/ Ipratropium (Duoneb) 3 ml 1X ONCE NEB Last administered on at 11:22; Start 02/19/18 at 11:00; Stop 02/19/18 at 11:09; Status DC Digoxin (Lanoxin) 1,000 mcg 1X ONCE IV ; Start 02/19/18 at 11:30; Stop at 11:36; Status DC Digoxin (Lanoxin) 250 mcg 1X ONCE IV Last administered on 02/19/18at 11:49; Start 02/19/18 at 11:45; Stop 02/19/18 at 11:46; Status DC Digoxin (Lanoxin) 250 mcg 1X ONCE IV Last administered on 02/19/18at 15:53; Start 02/19/18 at 12:30; Stop 02/19/18 at 12:32; Status DC Furosemide (Lasix) 40 mg 1X ONCE IVP Last administered on 02/19/18at 12:49; Start 02/19/18 at 12:45; Stop 02/19/18 at 12:46; Status DC Ondansetron HCl (Zofran) 4 mg PRN Q8HRS PRN IV NAUSEA/VOMITING; Start 02/19/18 at 13:45 Ondansetron HCl (Zofran Odt) 4 mg PRN Q8HRS PRN PO NAUSEA/VOMITING; Start 02/19 at 14:15 Acetaminophen (Tylenol) 650 mg PRN Q6HRS PRN PO PAIN; Start 02/19/18 at 15:30 Albuterol Sulfate (Ventolin) 2.5 mg PRN Q4HRS PRN NEB SHORTNESS OF BREATH; Start 02/19/18 at 15:30 Diclofenac Sodium (Voltaren) 4 stefani QIDPRN PRN TP PAIN; Start 02/19/18 at 15:30 Ferrous Sulfate (Feosol) 325 mg BID PO ; Start 02/19/18 at 21:00 Albuterol/ Ipratropium (Duoneb) 3 ml Q4HRS NEB ; Start 02/19/18 at 16:00; Stop 02/19/18 at 16:00; Status DC Nystatin (Nystop) 1 stefani BID TP ; Start 02/19/18 at 21:00 Allopurinol (Zyloprim) 200 mg DAILY PO ; Start 02/20/18 at 09:00 Aspirin (Children'S Aspirin) 81 mg DAILYWBKFT PO ; Start 02/20/18 at 08:00 Non-Formulary Medication (Budesonide/ Formoterol Fumarate (Symbicort 160-4.5 Mcg Inhaler)) 2 puff BID IH ; Start 02/19/18 at 21:00; Stop 02/19/18 at 21:00; Status DC Non-Formulary Medication (Calcium Carb/ Magnesium Hydrox (Rolaids Chewable Tablet)) 1 each PRN Q8HRS PRN PO DYSPEPSIA; Start 02/19/18 at 15:30; Stop 02/19 at 15:44; Status DC Calcium Carbonate/ Glycine (Tums) 1,500 mg PRN Q8HRS PRN PO INDIGESTION; Start 02/19/18 at 15:45 Artificial Tears (Artificial Tears) 1 drop PRN Q6HRS PRN OU DRY EYE; Start at 16:00 Vitamin D (Vitamin D3) 5,000 unit DAILY PO ; Start 02/20/18 at 09:00 Pantoprazole Sodium (Protonix) 40 mg DAILYAC PO ; Start 02/20/18 at 07:30 Folic Acid (Folic Acid) 1 mg DAILY PO ; Start 02/20/18 at 09:00 Acetaminophen/ Hydrocodone Bitart (Lortab 5/325) 1 tab PRN Q6HRS PRN PO PAIN; Start 02/19/18 at 16:00 Albumin Human 50 ml @ 50 mls/hr BID IV ; Start 02/19/18 at 21:00 Furosemide (Lasix) 40 mg BID92 IVP ; Start 02/20/18 at 09:00 Albuterol/ Ipratropium (Duoneb) 3 ml QID NEB ; Start 02/19/18 at 16:00 Budesonide (Pulmicort) 0.5 mg RTBID NEB ; Start 02/19/18 at 20:00 Active Scripts Active Reported Levaquin (Levofloxacin) 500 Mg Tablet 1 Tab PO DAILY 7 Days Zoloft (Sertraline Hcl) 25 Mg Tablet 3 Tab PO DAILY Nystatin 15 Gm Powder 1 Stefani TP BID Cortef (Hydrocortisone) 10 Mg Tablet 30 Mg PO DAILY Tizanidine Hcl (Tizanidine HCl) 4 Mg Tablet 4 Mg PO PRN QHS PRN Voltaren (Diclofenac Sodium) 100 Gm Gel..gram. 4 Gm TP QIDPRN PRN Vitamin D3 (Cholecalciferol (Vitamin D3)) 5,000 Unit Tablet 5,000 Unit PO DAILY Calci-Chew (Calcium Carbonate) 500 Mg Tab.chew 1,500 Mg PO PRN Q8HRS PRN Tizanidine Hcl (Tizanidine HCl) 4 Mg Tablet 4 Mg PO BID Saline Nasal [place] (Sodium Chloride) 30 Ml [place] 1-2 Spr NS PRN Q3HRS Rolaids Chewable Tablet (Calcium Carb/Magnesium Hydrox) 1 Each Tab.chew 1 Each PO PRN Q8HRS PRN [place] 5-325 Tablet (Hydrocodone Bit/Acetaminophen) 1 Each Tablet 1 Tab PO PRN Q6HRS PRN Nexium Capsule (Esomeprazole Magnesium) 40 Mg Capsule.dr 40 Mg PO DAILYAC Milk Of Magnesia (Magnesium Hydroxide) 2,400 Mg/10 Ml Oral.susp 2,400 Mg PO PRN Q24HRS PRN Metoprolol Tartrate 50 Mg Tablet 50 Mg PO BID Incruse Ellipta (Umeclidinium [place]) 62.5 Mcg Blst.w.dev 62.5 Mcg IH DAILY Duoneb 0.5-3(2.5) Mg/3 Ml (Albuterol/Ipratropium) 3 Ml Ampul.neb 3 Ml NEB Q4HRS Ferrous Sulfate 325 Mg Tablet 325 Mg PO BID Cough Drops (Menthol) 5 Mg Lozenge 5 Mg MM PRN Q4HRS PRN Lubricant Eye Drops (Carboxymethylcellulose Sodium) 15 Ml Drops 15 Ml OP PRN Q6HRS PRN Bumetanide 1 Mg Tablet 1 Mg PO BID Tylenol (Acetaminophen) 325 Mg Tablet 2 Tab PO PRN Q6HRS PRN Oxycodone Hcl 5 Mg Tablet 10 Mg PO PRN Nitrostat (Nitroglycerin) 0.4 Mg Tab.subl 0.4 Mg SL PRN Imodium A-D (Loperamide Hcl) 1 Mg/7.5 Ml Liquid 2 Mg PO PRN Symbicort 160-4.5 Mcg Inhaler (Budesonide/Formoterol Fumarate) 10.2 Gm Hfa.aer.ad 2 Puff IH BID Allopurinol 100 Mg Tablet 200 Mg PO DAILY Thiamine Hcl 100 Mg Tablet 100 Mg PO Folic Acid 1 Mg Tablet 1 Tab PO DAILY Aspirin 81 Mg Tab.chew 81 Mg PO DAILY Albuterol Sulfate Neb Soln (Albuterol Sulfate) 2.5 Mg/3 Ml Vial.neb 1 Vial NEB PRN Q4HRS Allergies: Coded Allergies: Penicillins (Verified Allergy, Intermediate, 11/19/15) azithromycin (Verified Allergy, Intermediate, 11/19/15) I S O L A T I O N *CONTACT* (Verified Allergy, Unknown, 11/20/15) +MRSA -96-56 Review of System as per HPI General: Alert, Oriented X3, Cooperative, No acute distress, Other (morbidly obese) HEENT: Atraumatic, EOMI, Mucous membr. moist/pink Lungs: Other (decreased throughout with scattered basilar crackles) Abdomen: Normal bowel sounds, Soft Extremities: No cyanosis, Other (++ bilateral lower extremity edema which appears chronic) Neuro: Normal speech Psych/Mental Status: Mental status NL, Mood NL VITALS Vital Signs Date Time Temp Pulse Resp B/P (MAP) Pulse Ox O2 Delivery O2 Flow Rate FiO2 02/19/18 16:10 Nasal Cannula 3.0 02/19/18 15:53 111 02/19/18 15:42 22 122/46 (71) 98 02/19/18 10:58 98.1 Labs Laboratory Tests Test 02/19/18 10:55 02/19/18 11:15 02/19/18 12:05 White Blood Count 7.4 x10^3/uL (4.0-11.0) Red Blood Count 3.21 x10^6/uL (4.30-5.70) Hemoglobin 8.9 g/dL (13.0-17.5) Hematocrit 28.2 % (39.0-53.0) Mean Corpuscular Volume 88 fL (79-100) Mean Corpuscular Hemoglobin 28 pg (25-35) Mean Corpuscular Hemoglobin Concent 32 g/dL (31-37) Red Cell Distribution Width 16.7 % (11.5-14.5) Platelet Count 169 x10^3/uL (140-400) Neutrophils (%) (Auto) 83 % (31-73) Lymphocytes (%) (Auto) 7 % (24-48) Monocytes (%) (Auto) 7 % (0-9) Eosinophils (%) (Auto) 3 % (0-3) Basophils (%) (Auto) 1 % (0-3) Neutrophils # (Auto) 6.1 x10^3uL (1.8-7.7) Lymphocytes # (Auto) 0.5 x10^3/uL (1.0-4.8) Monocytes # (Auto) 0.5 x10^3/uL (0.0-1.1) Eosinophils # (Auto) 0.2 x10^3/uL (0.0-0.7) Basophils # (Auto) 0.1 x10^3/uL (0.0-0.2) Sodium Level 145 mmol/L (136-145) Potassium Level 3.9 mmol/L (3.5-5.1) Chloride Level 108 mmol/L (98-107) Carbon Dioxide Level 28 mmol/L (21-32) Anion Gap 9 (6-14) Blood Urea Nitrogen 60 mg/dL (8-26) Creatinine 2.9 mg/dL (0.7-1.3) Estimated GFR (Cockcroft-Gault) 21.7 BUN/Creatinine Ratio 21 (6-20) Glucose Level 165 mg/dL (70-99) Calcium Level 7.9 mg/dL (8.5-10.1) Total Bilirubin 0.2 mg/dL (0.2-1.0) Aspartate Amino Transf (AST/SGOT) 14 U/L (15-37) Alanine Aminotransferase (ALT/SGPT) 14 U/L (16-63) Alkaline Phosphatase 121 U/L (46-116) Troponin I Quantitative < 0.017 ng/mL (0-0.055) ZQ-Grd-H-Type Natriuretic Peptide 9311 pg/mL (0-124) Total Protein 6.0 g/dL (6.4-8.2) Albumin 2.4 g/dL (3.4-5.0) Albumin/Globulin Ratio 0.7 (1.0-1.7) Urine Collection Type U cath Urine Color Yellow Urine Clarity Cloudy Urine pH 5.0 Urine Specific [place] 1.020 Urine Protein >100 mg/dl (NEG-TRACE) Urine Glucose (UA) Neg mg/dL (NEG) Urine Ketones (Stick) Neg mg/dL (NEG) Urine Blood Mod (NEG) Urine Nitrite Neg (NEG) Urine Bilirubin Neg (NEG) Urine Urobilinogen Dipstick 0.2 mg/dL (0.2 mg/dL) Urine Leukocyte Esterase Neg (NEG) Urine RBC 3-5 /HPF (0-2) Urine WBC Occ /HPF (0-4) Urine Squamous Epithelial Cells Occ /LPF Urine Amorphous Sediment Present /HPF Urine Bacteria Few /HPF (0-FEW) Stool Occult Blood Positive (NEG) Images EKG - Impression: 1. Accentuation of interstitial markings, similar to previous study. Findings could represent fibrotic change versus mild interstitial edema. Assessment/Plan 1. mild acute on chronic diastolic heart failure 2. anasarca with protein malnutrition 3. PHTN with RV dilitation 4. atrial fibrillation with RVR - poor candidate for chronic anticoagulation 5. CKD stage 4 6. recent episode of MRSA bacteremia Will start oral cardizem and amiodarone IV for for rate control in the interim as his pressure is borderline, history of COPD, oxygen dependant and class 4 CKD. Suggest re-eval echocardiogram. Will hold off on any further diuretics at this point as he has had an output of 1000cc already after 80mg of lasix and Cr is 2.9. Reassess in am. Suggest albumin with lasix if needed tomorrow. Recheck labs in am. NUSRAT RICHARDS APRN February 19, 2018 17:15
[2018-02-19] MEDS: dilTIAZem HCL 30 MG TABLET PO SCH ×2 (17:25→21:27)
--- NOTE | 2018-02-19 17:54 | HP ---
ADMIT DATE: 02/19/2018 HISTORY OF PRESENT ILLNESS: The patient is a 67-year-old male patient, a resident at [facility], who apparently was brought to the Emergency Room on account of worsening shortness of breath that has been going on for the last 2 months, according to him became worse in the last few days. The patient, however, denied any chest pain. Denied any cough, phlegm or hemoptysis. Denied any palpitation. However, by the time he arrived to the Emergency Room, he was found that his heart rate was up to 150, irregularly irregular. He was also found to have generalized anasarca. He has also acute on chronic kidney failure, was treated with Lasix and digoxin, and was admitted for further evaluation and treatment. PAST MEDICAL HISTORY: Significant for history of MRSA and VRE and Alcaligenes. He has a previous history of cellulitis and bacteremia from his both lower extremities, congestive heart failure, endocarditis with healed vegetation, severe right atrial enlargement, severe tricuspid regurgitation, mild mitral regurgitation, severe pulmonary hypertension with pulmonary artery pressure of 56 mmHg. The patient has recurrent pleural effusion, chronic obstructive pulmonary disease, C. diff diarrhea, atrial fibrillation with rapid ventricular response. He had a history of upper gastrointestinal bleeding requiring 5 units of packed RBCs, acute kidney injury on chronic kidney disease. His baseline creatinine is 1.4-1.5, vitamin D deficiency, combined systolic and diastolic heart failure, hepatitis C, gout. He has septic arthritis and previous history of endocarditis. ALLERGIES: He is allergic to PENICILLIN and AZITHROMYCIN. FAMILY HISTORY: Noncontributory. SOCIAL HISTORY: He used to live in his own apartment now. He lives at [facility]. He is a heavy smoker and quit in September. He was also alcoholic and he is a . REVIEW OF SYSTEMS: As per history of present illness. MEDICATIONS: He is currently on following medications: He is on ipratropium bromide, albuterol sulfate by nebulizer every 4 hours, nystatin 5 mL every 6 hours, Incruse Ellipta 62.5 mcg inhaler daily, tizanidine 4 mg twice a day, tizanidine 4 mg at bedtime, ferrous sulfate 325 mg p.o. b.i.d., nitroglycerin 0.4 mg sublingually every 5 minutes. He is on metoprolol tartrate 50 mg twice a day, aspirin 81 mg once a day, diclofenac sodium 4 grams topically 4 times a day, hydrocodone/APAP 5/325 one tablet every 6 hours, oxycodone 10 mg every 6 hours as needed, Tylenol 650 mg every 6 hours, sertraline 100 mg daily, aripiprazole for Abilify 5 mg daily, calcium carbonate 1500 mg every 8 hours. He is on bumetanide 1 mg p.o. b.i.d. He is on Symbicort 160/4.5 two puffs twice a day, lubricant eye drops every 6 hours. He is on saline nasal spray 1-2 sprays every 3 hours. ____ chewable tablet 1 q.8 hours, loperamide 2 mg every 4 hours as needed, magnesium hydroxide for milk of magnesia 30 mL p.o. daily p.r.n. for constipation, Nexium 40 mg once a day, folic acid 1 mg once a day, thiamine 100 mg once a day, cholecalciferol for vitamin D 5000 units daily, allopurinol 200 mg once a day. PHYSICAL EXAMINATION: VITAL SIGNS: On arrival to the Emergency Room, the patient was clearly tachypneic. His heart rate was 144, blood pressure was 121/73, temperature was 98.1, respiratory rate was 26 and oxygen saturation was 96% on 2 liters of oxygen. HEAD, EYES, EARS, NOSE AND THROAT: Showed normocephalic, atraumatic. NECK: Supple. HEART: Distant first and second heart sounds with no gallop, rub or murmur. CHEST: Shows central trachea, equally reduced expansion, reduced air entry, scattered rhonchi bilaterally. ABDOMEN: Markedly distended, soft, nontender. NEUROLOGIC: He is very hard of hearing, otherwise, all his cranial nerves are intact. He moves upper extremities to much good extent than lower extremities, mostly bed bound and chair bound. Examination of the extremities showed no clubbing or cyanosis, but marked generalized anasarca. He has also dried blood on his right third toe, the cause of which is not clear. LABORATORY AND DIAGNOSTIC DATA: His lab work showed a white cell count of 7400, hemoglobin 8.9, hematocrit 28, MCV 88 and platelet count of 169,000. His serum sodium was 145, potassium 3.9, chloride 108, bicarbonate 28, anion gap of 9, BUN 60, creatinine 2.9, estimated GFR was 22 mL per minute, his glucose 165, calcium was 7.9. Total bilirubin, AST, ALT are normal. Alkaline phosphatase slightly elevated. His beta natriuretic peptide was elevated at 9300. Total protein 6, albumin was 2.4. His stool for occult blood was positive. Urinalysis showed the urine was yellow, cloudy with a pH of 5, specific gravity 1.020. There is more than 100 mg/dL of protein in the urine. The urine was negative for glucose, ketones, moderate amount of blood, negative for nitrite and leukocyte esterase. There were 3-5 rbc's, occasional wbc's, and very few bacteria. His chest x-ray showed that the patient is rotated. Cardiac silhouette is probably within normal limits for size. Given positioning, no pneumothorax or large pleural effusion is seen. All granulomatous disease of the chest is noted. There is accentuation of interstitial marking, similar to previous study, which could represent either fibrotic changes versus mild interstitial edema. ASSESSMENT AND PLAN: The patient was given IV Lasix and also IV digoxin. He was admitted for further evaluation and treatment with the admitting diagnoses of: 1. Atrial fibrillation with rapid ventricular response. 2. Acute on chronic diastolic congestive heart failure. 3. Generalized anasarca, aggravated by severe hypoalbuminemia with serum albumin of only 2.4 mg/dL. 4. Acute on chronic kidney injury. His creatinine is up to 2.9 and BUN of 60. JOSELUIS ZELAYA MD DR: CLAY/hakeem JOB#: [id number] / [id number]
[2018-02-19] MEDS: BUDESONIDE 0.5 MG/2 ML NEBU NEB SCH (20:32)
[2018-02-19] MEDS ORDERED: NON FORMULARY ITEM (Budesonide/Formoterol Fumarate (Symbicort 160-4.5 Mcg Inhaler) 2 PUFF) IH SCH (21:00)
[2018-02-19] MEDS: NYSTATIN TOPICAL POWDER 15GM BOTTLE. TP SCH (21:00)
[2018-02-19] MEDS: FERROUS SULFATE 325 MG TABLET. PO SCH (21:27)
[2018-02-19] MEDS: ALBUMIN HUMAN 25% 50 ML IV SCH (21:28)
[2018-02-20] VITALS (23 sets, daily range): BP systolic 123–176; BP diastolic 63–80
[2018-02-20] MEDS: ALBUTEROL SULFATE 2.5 MG/3 ML NEBU. NEB PRN ×2 (03:20→18:36)
[2018-02-20] MEDS: dilTIAZem HCL 30 MG TABLET PO SCH ×3 (05:39→21:11)
[2018-02-20] MEDS: IPRATRPIUM/ALBUTEROL 0.5/2.5MG 3 ML NEBU. NEB SCH ×4 (05:58→21:30)
[2018-02-20 06:06] LABS: CALCIUM 8.3 mg/dL (8.5-10.1); CREATININE 2.9 mg/dL (0.7-1.3); GFR 21.7; POTASSIUM 3.9 mmol/L (3.5-5.1)
[2018-02-20 06:10] LABS: BASO # 0.1 x10^3/uL (0.0-0.2); BASO % 1 % (0-3); EOS # 0.4 x10^3/uL (0.0-0.7); EOS % 5 % (0-3); HEMATOCRIT 27.9 % (39.0-53.0); HEMOGLOBIN 8.9 g/dL (13.0-17.5); LYMPH # 0.6 x10^3/uL (1.0-4.8); LYMPH % 8 % (24-48); MEAN CORPUSCULAR HEMOGLOBIN 28 pg (25-35); MEAN CORPUSCULAR HGB CONC 32 g/dL (31-37); MEAN CORPUSCULAR VOLUME 88 fL (79-100); MONO # 0.6 x10^3/uL (0.0-1.1); MONO % 8 % (0-9); NEUT # 5.8 x10^3uL (1.8-7.7); NEUT % 78 % (31-73); PLATELET COUNT 175 x10^3/uL (140-400); RED BLOOD COUNT 3.16 x10^6/uL (4.30-5.70); RED CELL DISTRIBUTION WIDTH 16.5 % (11.5-14.5); WHITE BLOOD COUNT 7.5 x10^3/uL (4.0-11.0)
[2018-02-20] MEDS: ASPIRIN 81 MG TAB.CHEW PO SCH (07:54)
[2018-02-20] MEDS: PANTOPRAZOLE 40 MG TABLET. PO SCH (07:54)
[2018-02-20] MEDS: ALBUMIN HUMAN 25% 50 ML IV SCH ×2 (08:47→21:10)
[2018-02-20] MEDS: FUROSEMIDE 40 MG/4 ML VIAL IVP SCH ×2 (08:48→21:11)
[2018-02-20] MEDS: FERROUS SULFATE 325 MG TABLET. PO SCH ×2 (08:48→21:11)
[2018-02-20] MEDS: CHOLECALCIFEROL (VITAMIN D3) 1,000 UNIT TABLET PO SCH (08:48)
[2018-02-20] MEDS: FOLIC ACID 1 MG TABLET PO SCH (08:48)
[2018-02-20] MEDS: NYSTATIN TOPICAL POWDER 15GM BOTTLE. TP SCH ×2 (08:49→21:12)
[2018-02-20] MEDS: ALLOPURINOL 100 MG TABLET. PO SCH (08:49)
[2018-02-20] MEDS: BUDESONIDE 0.5 MG/2 ML NEBU NEB SCH ×2 (09:19→21:30)
[2018-02-20 10:08] LABS: % BANDS 2 % (0-9); % EOS 4 % (0-5); % LYMPHS 15 % (24-48); % METAS 3 % (0-0); % MONOS 3 % (0-10); % SEGS 73 % (35-66)
[2018-02-20 10:22] LABS: PLT ESTIMATE ADEQUATE (ADEQUATE)
[2018-02-20 13:38] LABS: BGAS PH 7.37 (7.35-7.46)
[2018-02-20] MEDS ORDERED: MORPHINE SULFATE 2 MG/ML DISP.SYRIN. IV PRN (14:15)
[2018-02-20] MEDS: NITROGLYCERIN OINT 1 GM PACKET. TP SCH ×2 (14:44→21:14)
--- NOTE | 2018-02-20 14:48 | RAD ---
CHEST AP ONLY dated 02/20/2018 2:20 PM. Comparison: 02/19/2018 Clinical Indication: Short of breath, worse today. Findings: Single upright portable exam performed. Heart and mediastinal contours are stable. Lung volumes are low, limiting evaluation. There is a prominent linear markings at both lung bases, unchanged. No consolidation or pleural effusion. No pneumothorax. Impression: No significant interval change compared to 02/19/2018. Electronically signed by: Earnest Alcantara MD (02/20/2018 2:45 PM) [facility] [place]
[2018-02-21] VITALS (37 sets, daily range): BP systolic 145–194; BP diastolic 63–86
[2018-02-21] MEDS: ALBUTEROL SULFATE 2.5 MG/3 ML NEBU. NEB PRN ×2 (03:58→14:27)
[2018-02-21] MEDS: IPRATRPIUM/ALBUTEROL 0.5/2.5MG 3 ML NEBU. NEB SCH ×4 (05:54→21:27)
[2018-02-21] MEDS: dilTIAZem HCL 30 MG TABLET PO SCH ×3 (06:03→20:49)
[2018-02-21] MEDS: NITROGLYCERIN OINT 1 GM PACKET. TP SCH (06:03)
[2018-02-21 07:11] LABS: HEMATOCRIT 27.5 % (39.0-53.0); HEMOGLOBIN 8.8 g/dL (13.0-17.5); RED BLOOD COUNT 3.14 x10^6/uL (4.30-5.70); WHITE BLOOD COUNT 7.6 x10^3/uL (4.0-11.0)
[2018-02-21 07:16] LABS: ALBUMIN 2.6 g/dL (3.4-5.0); ALBUMIN/GLOBULIN RATIO 0.7 (1.0-1.7); CALCIUM 8.6 mg/dL (8.5-10.1); CREATININE 2.8 mg/dL (0.7-1.3); GFR 22.6; POTASSIUM 3.8 mmol/L (3.5-5.1); TOTAL BILIRUBIN 0.3 mg/dL (0.2-1.0); TOTAL PROTEIN 6.6 g/dL (6.4-8.2)
[2018-02-21] MEDS: PANTOPRAZOLE 40 MG TABLET. PO SCH (08:11)
[2018-02-21] MEDS: ASPIRIN 81 MG TAB.CHEW PO SCH (08:11)
[2018-02-21] MEDS: ALBUMIN HUMAN 25% 50 ML IV SCH ×2 (08:35→20:48)
[2018-02-21] MEDS: FUROSEMIDE 40 MG/4 ML VIAL IVP SCH ×2 (08:36→20:48)
[2018-02-21] MEDS: FERROUS SULFATE 325 MG TABLET. PO SCH ×2 (08:36→20:49)
[2018-02-21] MEDS: NYSTATIN TOPICAL POWDER 15GM BOTTLE. TP SCH ×2 (08:36→20:50)
[2018-02-21] MEDS: ALLOPURINOL 100 MG TABLET. PO SCH (08:36)
[2018-02-21] MEDS: FOLIC ACID 1 MG TABLET PO SCH (08:36)
[2018-02-21] MEDS: CHOLECALCIFEROL (VITAMIN D3) 1,000 UNIT TABLET PO SCH (08:36)
--- NOTE | 2018-02-21 09:19 | PDOC ---
PROVIDER NOTE PROVIDER NOTE PROVIDER NOTE CARDIOLOGY PROGRESS NOTE: S: 67 y.o male with significant anasarca and diastolic HF. Continues to have dyspnea. O: VS: AF, RR 24, BP 185/80, 95% on 2L Approximately -3L over last 24 hours per nursing report. Chronic bilateral lower ext venous stasis changes Neck veins diff to visualize. Obese, protrubent abdomen heart tones distant. no RV heave appreciated. Diagnostic Tests: Cr 2.8, Na 147 BNP 9311 CXR reviewed - poor penetration, bilateral edema. Tele - Afib with HR 100 Current Cardiac meds: 1. ASA 81mg daily 2. Diltiazem 30mg p.o q 8 hours 3. Lasix 40mg IVP BID. Impression: 1. Acute on chronic diastolic Heart failure - 2. Afib with RVR - now better controlled 3. HTN - Stage 2 - uncontrolled 4. NAYELY on CKD 5. Anasarca, protein malnutrition 6. Prior history of pulmonary HTN. RECS: 1. Due to rising sodium, continued diuresis may be difficult, will monitor closely and may need to consider HD for fluid removal if he has progressive hypernatremia. 2. Will start on hydralazine 50mg p.o q 8hours and put on a NTG gtt for better BP control and preload reduction. 3. Continue diltiazem, await echo and depending on EF, may need to change to metoprolol but hesitant given his significant wheezing. 4. Start solumedrol 40mg iv q 8 hours. 5. Will defer empiric antibiotics to Dr. Cortez. 6. Await echo. HILARIO HARDIN MD February 21, 2018 09:19
[2018-02-21] MEDS: BUDESONIDE 0.5 MG/2 ML NEBU NEB SCH ×2 (09:20→21:27)
[2018-02-21] MEDS: methylPREDNISolone SOD SUCC PF 40 MG/ML VIAL. IV SCH ×3 (09:39→20:48)
[2018-02-21] MEDS: NITROGLYCERIN PREMIX 250 ML IV PRN ×2 (09:41→22:12)
--- NOTE | 2018-02-21 10:43 | PN ---
DATE: 02/20/2018 SUBJECTIVE: The patient is resting, slightly propped up, clearly markedly tachypneic, complaining of abdominal bloating. Denied any chest pain. His heart rate is definitely much better controlled than yesterday as he was started on Cardizem and amiodarone drip. OBJECTIVE: GENERAL: On examining him, he was somewhat pale, but no jaundice, cyanosis. No lymphadenopathy, no thyromegaly. No jugular venous distention. Marked generalized anasarca. VITAL SIGNS: His heart rate was 101, blood pressure 172/74, temperature is 98.6. His respiratory rate was 30 and oxygen saturation was 94% on 2 liters of oxygen cannula. HEAD, EYES, EARS, NOSE AND THROAT: Showed normocephalic, atraumatic. NECK: Supple. HEART: Showed normal first and second heart sounds with no gallop, rub or murmur. It is markedly tachypneic. CHEST: Shows central trachea, equal bilateral expansion, air entry. NEUROLOGIC: He is hard of hearing, but otherwise all cranial nerves intact. He moves extremities without difficulty, has marked generalized anasarca. He has an indwelling Jones catheter. His intake over the last 24 hours was 1690, output was 2100. LABORATORY DATA: This morning showed that his white cell count is 7500, hemoglobin 8.9, hematocrit 27.9, MCV 88 and platelet count of 175,000. His chemistry showed a serum sodium 146, potassium 3.9, chloride 108, bicarbonate 30, anion gap of 8, BUN 55, creatinine 2.9, estimated GFR was 21 mL per minute, his glucose was 96, calcium was 8.3. ASSESSMENT: 1. Atrial fibrillation with rapid ventricular response. 2. Acute on chronic diastolic congestive heart failure the patient seemed to be more tachypneic today. 3. Generalized anasarca due to probably third spacing as his serum albumin is extremely low. 4. Pulmonary hypertension with right ventricular dilatation. 5. Chronic kidney disease. PLAN: I did actually arrange for him to have a portable chest x-ray and also arterial blood gases and we will decide the further management accordingly. JOSELUIS ZELAYA MD DR: CLAY/hakeem JOB#: [id number] / [id number]
[2018-02-21 12:39] LABS: BGAS PH 7.42 (7.35-7.46)
[2018-02-21] MEDS ORDERED: SODIUM CHL/ALOE VERA NASAL GEL 14.1GM TUBE. NS PRN (13:15)
[2018-02-21] MEDS: MEROPENEM 500 MG in IV NORMAL SALINE 50ML 50 ML IV SCH ×2 (14:04→22:15)
[2018-02-21] MEDS: FLUTICASONE 50MCG/NASAL SPRAY 16GM BOTTLE. NS SCH (14:07)
[2018-02-21] MEDS: MORPHINE SULFATE 4 MG/ML DISP.SYRIN. IV PRN (15:46)
[2018-02-21] MEDS ORDERED: PERFLUTREN PROTEIN-A MICROSPHR 0.22 MG/ML 3 ML VIAL. IV ONE (16:00)
[2018-02-21] MEDS: MONTELUKAST 10 MG TABLET. PO SCH (20:49)
[2018-02-22] VITALS (22 sets, daily range): BP systolic 120–179; BP diastolic 30–77
[2018-02-22] MEDS: IPRATRPIUM/ALBUTEROL 0.5/2.5MG 3 ML NEBU. NEB SCH ×4 (03:21→20:44)
--- NOTE | 2018-02-22 03:40 | PN ---
DATE: 02/21/2018 SUBJECTIVE: The patient continues to be extremely tachypneic, orthopneic, continued to complain to have chest wheezing, has cough, which is with brownish sputum. No fever. PHYSICAL EXAMINATION: GENERAL: When I examined him today, he looked pale, but no jaundice or cyanosis. No lymphadenopathy, no thyromegaly. No jugular venous distention with generalized anasarca. VITAL SIGNS: His heart rate was 96, blood pressure was 161/66, last temperature was 98.5. HEAD, EYES, EARS, NOSE AND THROAT: Showed normocephalic, atraumatic. There is no tenderness in the paranasal sinuses. NECK: Supple. HEART: Showed normal first and second heart sounds with no gallop, rub or murmur. CHEST: Shows central trachea, equally reduced expansion, reduced air entry, vesicular sounds with scattered rhonchi bilaterally. I could not appreciate any crepitation. ABDOMEN: Distended, soft, nontender. NEUROLOGIC: He is very hard of hearing, but otherwise all cranial nerves are intact. He moves his upper extremities to much good extent than his lower extremities, mostly bedbound and chair bound. He has marked generalized anasarca. His intake over the last 24 hours was 2340, output was 3900. LABORATORY DATA: Showed a white cell count of 7600, hemoglobin 8.8, hematocrit 27.5, MCV 87 and platelet count of 179,000. Serum sodium was 147, potassium 3.8, chloride 109, bicarbonate 32, anion gap of 6, BUN 50, creatinine 2.8. Estimated GFR was 22.6 mL per minute. His glucose was 109. Calcium was 8.6. Total bilirubin, AST, ALT, alkaline phosphatase were normal. Total protein was 6.6, albumin was 2.6. As of yesterday, the arterial pH was 7.37, pCO2 of 50, pO2 of 72, bicarbonate 29 and oxygen saturation was 94% on FiO2 50%. PLAN: To continue with IV Lasix and albumin. Continue with the Desonide. Continue with albuterol. I will increase albuterol to every 2 hours and add Singulair. Continue with all these medication and perhaps repeat his blood gases and see if require BiPAP machine. JOSELUIS ZELAYA MD DR: CLAY/hakeem JOB#: [id number] / [id number]
[2018-02-22] MEDS: MEROPENEM 500 MG in IV NORMAL SALINE 50ML 50 ML IV SCH ×3 (05:14→22:19)
[2018-02-22] MEDS: NITROGLYCERIN PREMIX 250 ML IV PRN (05:15)
[2018-02-22] MEDS: methylPREDNISolone SOD SUCC PF 40 MG/ML VIAL. IV SCH ×3 (05:32→22:19)
[2018-02-22] MEDS: dilTIAZem HCL 30 MG TABLET PO SCH ×2 (05:33→13:54)
[2018-02-22 06:38] LABS: BASO % 0 % (0-3); EOS % 0 % (0-3); HEMATOCRIT 28.9 % (39.0-53.0); HEMOGLOBIN 9.1 g/dL (13.0-17.5); LYMPH # 0.5 x10^3/uL (1.0-4.8); LYMPH % 4 % (24-48); MEAN CORPUSCULAR HEMOGLOBIN 28 pg (25-35); MEAN CORPUSCULAR HGB CONC 32 g/dL (31-37); MEAN CORPUSCULAR VOLUME 87 fL (79-100); MONO # 0.3 x10^3/uL (0.0-1.1); MONO % 2 % (0-9); NEUT # 11.9 x10^3uL (1.8-7.7); NEUT % 94 % (31-73); PLATELET COUNT 203 x10^3/uL (140-400); RED BLOOD COUNT 3.31 x10^6/uL (4.30-5.70); RED CELL DISTRIBUTION WIDTH 16.9 % (11.5-14.5); WHITE BLOOD COUNT 12.7 x10^3/uL (4.0-11.0)
[2018-02-22 06:45] LABS: ALBUMIN 2.7 g/dL (3.4-5.0); ALBUMIN/GLOBULIN RATIO 0.7 (1.0-1.7); CALCIUM 8.5 mg/dL (8.5-10.1); GFR 20.9; TOTAL BILIRUBIN 0.4 mg/dL (0.2-1.0); TOTAL PROTEIN 6.7 g/dL (6.4-8.2)
[2018-02-22] MEDS: PANTOPRAZOLE 40 MG TABLET. PO SCH (07:42)
[2018-02-22] MEDS: BUDESONIDE 0.5 MG/2 ML NEBU NEB SCH ×2 (07:46→20:45)
[2018-02-22 08:19] LABS: % BANDS 2 % (0-9); % LYMPHS 1 % (24-48); % MYELOS 1 % (0-0); % SEGS 96 % (35-66)
[2018-02-22 08:20] LABS: PLT ESTIMATE ADEQUATE (ADEQUATE)
[2018-02-22 08:21] LABS: HYPOCHROMIA SLIGHT; POLYCHROMASIA SLIGHT
[2018-02-22] MEDS: ALLOPURINOL 100 MG TABLET. PO SCH (09:06)
[2018-02-22] MEDS: FERROUS SULFATE 325 MG TABLET. PO SCH ×2 (09:06→20:27)
[2018-02-22] MEDS: CHOLECALCIFEROL (VITAMIN D3) 1,000 UNIT TABLET PO SCH (09:07)
[2018-02-22] MEDS: LACTOBACILLUS RHAMNOSUS GG 1 CAPSULE. PO SCH ×2 (09:07→20:27)
[2018-02-22] MEDS: FOLIC ACID 1 MG TABLET PO SCH (09:07)
[2018-02-22] MEDS: NYSTATIN TOPICAL POWDER 15GM BOTTLE. TP SCH ×2 (09:07→20:27)
[2018-02-22] MEDS: ASPIRIN 81 MG TAB.CHEW PO SCH (09:07)
[2018-02-22] MEDS: FLUTICASONE 50MCG/NASAL SPRAY 16GM BOTTLE. NS SCH (09:07)
[2018-02-22] MEDS: ALBUMIN HUMAN 25% 50 ML IV SCH ×2 (09:08→20:27)
[2018-02-22] MEDS: FUROSEMIDE 40 MG/4 ML VIAL IVP SCH ×2 (09:11→20:27)
[2018-02-22] MEDS: ALBUTEROL SULFATE 2.5 MG/3 ML NEBU. NEB PRN (09:37)
[2018-02-22 11:50] LABS: BGAS PH 7.42 (7.35-7.46)
[2018-02-22] MEDS: MORPHINE SULFATE 4 MG/ML DISP.SYRIN. IV PRN (12:13)
[2018-02-22] MEDS ORDERED: MORPHINE SULFATE 4 MG/ML DISP.SYRIN. IV PRN (12:15)
--- NOTE | 2018-02-22 15:17 | PDOC ---
PROVIDER NOTE PROVIDER NOTE PROVIDER NOTE Cardiology Progress Note: S: No acute events overnight. Reports feeling better. On Bipap for air hunger. O: VSS: HR 100's, BP 140/80's. Negative 1.1 L Lungs improved aeration irr heart tones. Persistent chronic anasarca. Labs reviewed. Impression 1. Persistent Atrial fibrillation - rate control suboptimal 2. HTN - Improved 3. Acute on chronic diastolic HF 4. NAYELY on CKD - stable. RECS 1. Diltiazem changed to 120mg daily 2. Continue lasix 40mg IV BID 3. Put on 1800 ml fluid restriction. 4. Continue hydralazine and add imdur, wean NTG gtt. Supportive care. Goal of net 1L negative daily to ensure stable renal function. Will follow. Thanks HILARIO HARDIN MD February 22, 2018 15:17
[2018-02-22] MEDS ORDERED: ISOSORBIDE MONONITRATE ER 30 MG TAB.ER.24H PO ONE (15:30)
[2018-02-22] MEDS: MONTELUKAST 10 MG TABLET. PO SCH (20:27)
[2018-02-23] VITALS (21 sets, daily range): BP systolic 97–154; BP diastolic 39–79
[2018-02-23] MEDS: IPRATRPIUM/ALBUTEROL 0.5/2.5MG 3 ML NEBU. NEB SCH ×4 (04:38→21:48)
[2018-02-23] MEDS: BUDESONIDE 0.5 MG/2 ML NEBU NEB SCH ×3 (04:38→21:48)
[2018-02-23] MEDS: MEROPENEM 500 MG in IV NORMAL SALINE 50ML 50 ML IV SCH ×3 (06:13→22:29)
[2018-02-23] MEDS: methylPREDNISolone SOD SUCC PF 40 MG/ML VIAL. IV SCH ×3 (06:13→21:01)
[2018-02-23 06:42] LABS: HEMATOCRIT 29.1 % (39.0-53.0); RED BLOOD COUNT 3.28 x10^6/uL (4.30-5.70); WHITE BLOOD COUNT 17.5 x10^3/uL (4.0-11.0)
[2018-02-23 06:52] LABS: ALBUMIN/GLOBULIN RATIO 0.8 (1.0-1.7); CALCIUM 8.5 mg/dL (8.5-10.1); CREATININE 3.2 mg/dL (0.7-1.3); GFR 19.4; POTASSIUM 4.4 mmol/L (3.5-5.1); TOTAL BILIRUBIN 0.3 mg/dL (0.2-1.0); TOTAL PROTEIN 6.7 g/dL (6.4-8.2)
[2018-02-23] MEDS: LACTOBACILLUS RHAMNOSUS GG 1 CAPSULE. PO SCH ×2 (08:00→21:00)
[2018-02-23] MEDS: CHOLECALCIFEROL (VITAMIN D3) 1,000 UNIT TABLET PO SCH (08:00)
[2018-02-23] MEDS: ALLOPURINOL 100 MG TABLET. PO SCH (08:00)
[2018-02-23] MEDS: FLUTICASONE 50MCG/NASAL SPRAY 16GM BOTTLE. NS SCH (08:00)
[2018-02-23] MEDS: FERROUS SULFATE 325 MG TABLET. PO SCH ×2 (08:00→21:00)
[2018-02-23] MEDS: ASPIRIN 81 MG TAB.CHEW PO SCH (08:01)
[2018-02-23] MEDS: FOLIC ACID 1 MG TABLET PO SCH (08:01)
[2018-02-23] MEDS: PANTOPRAZOLE 40 MG TABLET. PO SCH (08:01)
[2018-02-23] MEDS: ISOSORBIDE MONONITRATE ER 30 MG TAB.ER.24H PO SCH (08:01)
[2018-02-23] MEDS: NYSTATIN TOPICAL POWDER 15GM BOTTLE. TP SCH ×2 (08:02→21:00)
[2018-02-23] MEDS: FUROSEMIDE 40 MG/4 ML VIAL IVP SCH ×3 (09:00→17:43)
[2018-02-23] MEDS: ALBUMIN HUMAN 25% 50 ML IV SCH ×3 (09:00→17:43)
--- NOTE | 2018-02-23 10:59 | RAD ---
CHEST AP ONLY History: CHF Comparison: February 20, 2018 Findings: Single view of the chest is submitted. Pericardial cardiac silhouette is enlarged although unchanged. There is some interstitial opacity bilaterally, fairly similar. There is no new significant pleural fluid. There is no pneumothorax. There is nodule of the right lung base as seen previously, likely calcified. Impression: 1. There is again enlargement pericardial cardiac silhouette. Interstitial opacity is fairly similar, no significant pleural fluid. Electronically signed by: Scar Mena MD (02/23/2018 10:56 AM) [id number]
--- NOTE | 2018-02-23 11:39 | PDOC ---
PROGRESS NOTES Diagnosis Problem Problems Medical Problems: (1) Anemia of unknown etiology Status: Acute (2) CHF exacerbation Status: Acute (3) Uncontrolled atrial fibrillation Status: Acute Assessment Problems Medical Problems: (1) Anemia of unknown etiology Status: Acute (2) CHF exacerbation Status: Acute (3) Uncontrolled atrial fibrillation Status: Acute 1. Persistent Atrial fibrillation - rate control improved on current Rx 2. HTN - controlled 3. Acute on chronic diastolic HF - down 11 lbs since admission, 4 lbs since yesterday. Significant improvement in peripheral edema. Remains on BiPap for air hunger. 4. NAYELY on CKD - Cr up mildly from yesterday (3.2). Will repeat CXR prior to IV lasix today. Subjective feeling better, still on Bipap, no chest pain. Edema improving. Objective Vital Signs Date Time Temp Pulse Resp B/P (MAP) Pulse Ox O2 Delivery O2 Flow Rate FiO2 02/23/18 10:30 98.4 97 18 116/51 (72) 98 Nasal Cannula 5.0 Intake and Output 02/23/18 07:00 Intake Total 2062 ml Output Total 1225 ml Balance 837 ml Intake Oral 450 ml IV Total 1612 ml Output Urine Total 1225 ml # Bowel Movements 1 Abdomen: Normal bowel sounds, Soft, No tenderness Heart: Other (IRR) Extremities: No cyanosis, Other (improving edema) General: Alert, Oriented X3, Cooperative, No acute distress Lungs: Other (decreased bases) Neuro: Normal speech Psych/Mental Status: Mental status NL, Mood NL Review of Relevant I have reviewed the following items yaron (where applicable) has been applied. Labs Laboratory Tests Test 02/21/18 12:25 02/22/18 06:00 02/22/18 11:37 02/23/18 05:38 Blood Gas pH 7.42 (7.35-7.46) 7.42 (7.35-7.46) Blood Gas PCO2 47 mmHg (35-46) 42 mmHg (35-46) Blood Gas PO2 73 mmHg (80-100) 75 mmHg (80-100) Blood Gas HCO3 31 mmol/L (21-28) 27 mmol/L (21-28) Arterial Bld O2 Saturation (Calc) 95 % (92-99) 95 % (92-99) FiO2 30 % 28 % White Blood Count 12.7 x10^3/uL (4.0-11.0) 17.5 x10^3/uL (4.0-11.0) Red Blood Count 3.31 x10^6/uL (4.30-5.70) 3.28 x10^6/uL (4.30-5.70) Hemoglobin 9.1 g/dL (13.0-17.5) 9.0 g/dL (13.0-17.5) Hematocrit 28.9 % (39.0-53.0) 29.1 % (39.0-53.0) Mean Corpuscular Volume 87 fL (79-100) 89 fL (79-100) Mean Corpuscular Hemoglobin 28 pg (25-35) 27 pg (25-35) Mean Corpuscular Hemoglobin Concent 32 g/dL (31-37) 31 g/dL (31-37) Red Cell Distribution Width 16.9 % (11.5-14.5) 17.0 % (11.5-14.5) Platelet Count 203 x10^3/uL (140-400) 196 x10^3/uL (140-400) Neutrophils (%) (Auto) 94 % (31-73) Lymphocytes (%) (Auto) 4 % (24-48) Monocytes (%) (Auto) 2 % (0-9) Eosinophils (%) (Auto) 0 % (0-3) Basophils (%) (Auto) 0 % (0-3) Neutrophils # (Auto) 11.9 x10^3uL (1.8-7.7) Lymphocytes # (Auto) 0.5 x10^3/uL (1.0-4.8) Monocytes # (Auto) 0.3 x10^3/uL (0.0-1.1) Eosinophils # (Auto) 0.0 x10^3/uL (0.0-0.7) Basophils # (Auto) 0.0 x10^3/uL (0.0-0.2) Segmented Neutrophils % 96 % (35-66) Band Neutrophils % 2 % (0-9) Lymphocytes % 1 % (24-48) Myelocytes % 1 % (0-0) Platelet Estimate Adequate (ADEQUATE) Polychromasia Slight Hypochromasia Slight Sodium Level 143 mmol/L (136-145) 143 mmol/L (136-145) Potassium Level 4.0 mmol/L (3.5-5.1) 4.4 mmol/L (3.5-5.1) Chloride Level 104 mmol/L (98-107) 103 mmol/L (98-107) Carbon Dioxide Level 32 mmol/L (21-32) 32 mmol/L (21-32) Anion Gap 7 (6-14) 8 (6-14) Blood Urea Nitrogen 51 mg/dL (8-26) 59 mg/dL (8-26) Creatinine 3.0 mg/dL (0.7-1.3) 3.2 mg/dL (0.7-1.3) Estimated GFR (Cockcroft-Gault) 20.9 19.4 BUN/Creatinine Ratio 17 (6-20) 18 (6-20) Glucose Level 206 mg/dL (70-99) 177 mg/dL (70-99) Calcium Level 8.5 mg/dL (8.5-10.1) 8.5 mg/dL (8.5-10.1) Magnesium Level 1.5 mg/dL (1.8-2.4) Total Bilirubin 0.4 mg/dL (0.2-1.0) 0.3 mg/dL (0.2-1.0) Aspartate Amino Transf (AST/SGOT) 13 U/L (15-37) 15 U/L (15-37) Alanine Aminotransferase (ALT/SGPT) 13 U/L (16-63) 14 U/L (16-63) Alkaline Phosphatase 88 U/L (46-116) 79 U/L (46-116) Total Protein 6.7 g/dL (6.4-8.2) 6.7 g/dL (6.4-8.2) Albumin 2.7 g/dL (3.4-5.0) 3.0 g/dL (3.4-5.0) Albumin/Globulin Ratio 0.7 (1.0-1.7) 0.8 (1.0-1.7) Medications Current Medications Furosemide (Lasix) 40 mg 1X ONCE IVP Last administered on 02/19/18at 11:21; Start 02/19/18 at 11:00; Stop 02/19/18 at 11:09; Status DC Albuterol/ Ipratropium (Duoneb) 3 ml 1X ONCE NEB Last administered on at 11:22; Start 02/19/18 at 11:00; Stop 02/19/18 at 11:09; Status DC Digoxin (Lanoxin) 1,000 mcg 1X ONCE IV ; Start 02/19/18 at 11:30; Stop at 11:36; Status DC Digoxin (Lanoxin) 250 mcg 1X ONCE IV Last administered on 02/19/18at 11:49; Start 02/19/18 at 11:45; Stop 02/19/18 at 11:46; Status DC Digoxin (Lanoxin) 250 mcg 1X ONCE IV Last administered on 02/19/18at 15:53; Start 02/19/18 at 12:30; Stop 02/19/18 at 12:32; Status DC Furosemide (Lasix) 40 mg 1X ONCE IVP Last administered on 02/19/18at 12:49; Start 02/19/18 at 12:45; Stop 02/19/18 at 12:46; Status DC Ondansetron HCl (Zofran) 4 mg PRN Q8HRS PRN IV NAUSEA/VOMITING; Start 02/19/18 at 13:45 Ondansetron HCl (Zofran Odt) 4 mg PRN Q8HRS PRN PO NAUSEA/VOMITING; Start 02/19 at 14:15 Acetaminophen (Tylenol) 650 mg PRN Q6HRS PRN PO PAIN; Start 02/19/18 at 15:30 Albuterol Sulfate (Ventolin) 2.5 mg PRN Q4HRS PRN NEB SHORTNESS OF BREATH Last administered on 02/21/18at 03:58; Start 02/19/18 at 15:30; Stop 02/21/18 at 12:05 ; Status DC Diclofenac Sodium (Voltaren) 4 stefani QIDPRN PRN TP PAIN; Start 02/19/18 at 15:30 Ferrous Sulfate (Feosol) 325 mg BID PO Last administered on 02/23/18at 08:00; Start 02/19/18 at 21:00 Albuterol/ Ipratropium (Duoneb) 3 ml Q4HRS NEB ; Start 02/19/18 at 16:00; Stop 02/19/18 at 16:00; Status DC Nystatin (Nystop) 1 stefani BID TP Last administered on 02/23/18 08:02; Start at 21:00 Allopurinol (Zyloprim) 200 mg DAILY PO Last administered on 02/23/18at 08:00; Start 02/20/18 at 09:00 Aspirin (Children'S Aspirin) 81 mg DAILYWBKFT PO Last administered on at 08:01; Start 02/20/18 at 08:00 Non-Formulary Medication (Budesonide/ Formoterol Fumarate (Symbicort 160-4.5 Mcg Inhaler)) 2 puff BID IH ; Start 02/19/18 at 21:00; Stop 02/19/18 at 21:00; Status DC Non-Formulary Medication (Calcium Carb/ Magnesium Hydrox (Rolaids Chewable Tablet)) 1 each PRN Q8HRS PRN PO DYSPEPSIA; Start 02/19/18 at 15:30; Stop 02/19 at 15:44; Status DC Calcium Carbonate/ Glycine (Tums) 1,500 mg PRN Q8HRS PRN PO INDIGESTION; Start 02/19/18 at 15:45 Artificial Tears (Artificial Tears) 1 drop PRN Q6HRS PRN OU DRY EYE; Start at 16:00; Stop 02/19/18 at 17:45; Status DC Vitamin D (Vitamin D3) 5,000 unit DAILY PO Last administered on 02/23/18 08:00 ; Start 02/20/18 at 09:00 Pantoprazole Sodium (Protonix) 40 mg DAILYAC PO Last administered on 02/23/18at 08:01; Start 02/20/18 at 07:30 Folic Acid (Folic Acid) 1 mg DAILY PO Last administered on 02/23/18at 08:01; Start 02/20/18 at 09:00 Acetaminophen/ Hydrocodone Bitart (Lortab 5/325) 1 tab PRN Q6HRS PRN PO PAIN; Start 02/19/18 at 16:00 Albumin Human 50 ml @ 50 mls/hr BID IV Last administered on 02/22/18at 20:27; Start 02/19/18 at 21:00 Furosemide (Lasix) 40 mg BID IVP Last administered on 02/22/18at 20:27; Start at 09:00 Albuterol/ Ipratropium (Duoneb) 3 ml QID NEB Last administered on 02/23/18 09: 24; Start 02/19/18 at 16:00 Budesonide (Pulmicort) 0.5 mg RTBID NEB Last administered on 02/23/18 09:24; Start 02/19/18 at 20:00 Amiodarone HCl 900 mg/Dextrose 518 ml @ 0 mls/hr 1X ONCE IV Last administered on 02/19/18at 18:38; Start 02/19/18 at 17:15; Stop 02/19/18 at 17:16; Status DC Diltiazem HCl (Cardizem) 30 mg Q8HRS PO Last administered on 02/22/18at 13:54; Start 02/19/18 at 17:30; Stop 02/22/18 at 15:09; Status DC Artificial Tears (Artificial Tears) 1 drop PRN Q6HRS PRN OU DRY EYE; Start at 18:00 Nitroglycerin (Nitro-Bid Oint) 0.5 inch Q8HRS TP Last administered on at 06:03; Start 02/20/18 at 14:30; Stop 02/21/18 at 09:52; Status DC Morphine Sulfate (Morphine 2mg Syringe) 2 mg PRN Q4HRS PRN IV PAIN; Start 02/20 at 14:15; Stop 02/21/18 at 14:36; Status DC Hydralazine HCl (Apresoline) 50 mg Q8HRS PO Last administered on 02/21/18at 09: 40; Start 02/21/18 at 09:22; Stop 02/21/18 at 12:05; Status DC Nitroglycerin/ Dextrose 250 ml @ 0 mls/hr CONT PRN IV PER PROTOCOL Last administered on 02/22/18at 05:15; Start 02/21/18 at 09:30 Methylprednisolone Sodium Succinate (SOLU-Medrol 40MG VIAL) 40 mg Q8HRS IV Last administered on 02/23/18at 06:13; Start 02/21/18 at 09:23 Albuterol Sulfate (Ventolin) 2.5 mg PRN Q2HR PRN NEB SHORTNESS OF BREATH Last administered on 02/22/18at 09:37; Start 02/21/18 at 12:15 Hydralazine HCl (Apresoline) 100 mg Q8HRS PO Last administered on 02/23/18at 06: 13; Start 02/21/18 at 14:00 Montelukast Sodium (Singulair) 10 mg QHS PO Last administered on 02/22/18at 20: 27; Start 02/21/18 at 21:00 Linezolid 300 ml @ 300 mls/hr Q12H IV Last administered on 02/23/18at 01:35; Start 02/21/18 at 13:00 Meropenem 500 mg/ Sodium Chloride 50 ml @ 100 mls/hr Q8HRS IV Last administered on 02/23/18at 06:13; Start 02/21/18 at 14:00 Fluticasone Propionate (Flonase) 2 spray DAILY NS Last administered on at 08:00; Start 02/21/18 at 14:00 Sodium Chloride (Brandon Saline Nasal) 1 stefani PRN Q4HRS PRN NS NASAL CONGESTION; Start 02/21/18 at 13:15 Morphine Sulfate (Morphine 4mg Syringe) 2 mg PRN Q4HRS PRN IV PAIN Last administered on 02/22/18at 12:13; Start 02/21/18 at 14:45; Stop 02/22/18 at 12:28 ; Status DC Lactobacillus Rhamnosus (Culturelle) 1 cap BID PO Last administered on at 08:00; Start 02/22/18 at 09:00 Fentanyl Citrate (Fentanyl 2ml Vial) 25 mcg Q3H PRN IV PAIN; Start 02/22/18 at 12:00; Stop 02/22/18 at 12:28; Status DC Alprazolam (Xanax) 0.5 mg PRN Q8HRS PRN PO ANXIETY / AGITATION; Start 02/22/18 at 12:00 Perflutren Protein Type A Microsphe (Optison) 0.66 mg 1X ONCE IV Last administered on 02/21/18at 16:00; Start 02/21/18 at 16:00; Stop 02/22/18 at 12:11 ; Status DC Morphine Sulfate (Morphine 4mg Syringe) 2 mg PRN Q3HRS PRN IV PAIN; Start 02/22 at 12:15 Diltiazem HCl (Cardizem 24hr Cd) 120 mg 1X ONCE PO Last administered on at 16:17; Start 02/22/18 at 15:30; Stop 02/22/18 at 15:31; Status DC Diltiazem HCl (Cardizem 24hr Cd) 120 mg DAILY PO Last administered on at 08:01; Start 02/23/18 at 09:00 Isosorbide Mononitrate (Imdur) 60 mg 1X ONCE PO Last administered on at 16:19; Start 02/22/18 at 15:30; Stop 02/22/18 at 15:31; Status DC Isosorbide Mononitrate (Imdur) 60 mg DAILY PO Last administered on 02/23/18at 08 :01; Start 02/23/18 at 09:00 Active Scripts Active Reported Levaquin (Levofloxacin) 500 Mg Tablet 1 Tab PO DAILY 7 Days Zoloft (Sertraline Hcl) 25 Mg Tablet 3 Tab PO DAILY Nystatin 15 Gm Powder 1 Stefani TP BID Cortef (Hydrocortisone) 10 Mg Tablet 30 Mg PO DAILY Tizanidine Hcl (Tizanidine HCl) 4 Mg Tablet 4 Mg PO PRN QHS PRN Voltaren (Diclofenac Sodium) 100 Gm Gel..gram. 4 Gm TP QIDPRN PRN Vitamin D3 (Cholecalciferol (Vitamin D3)) 5,000 Unit Tablet 5,000 Unit PO DAILY Calci-Chew (Calcium Carbonate) 500 Mg Tab.chew 1,500 Mg PO PRN Q8HRS PRN Tizanidine Hcl (Tizanidine HCl) 4 Mg Tablet 4 Mg PO BID Saline Nasal [place] (Sodium Chloride) 30 Ml [place] 1-2 Spr NS PRN Q3HRS Rolaids Chewable Tablet (Calcium Carb/Magnesium Hydrox) 1 Each Tab.chew 1 Each PO PRN Q8HRS PRN [place] 5-325 Tablet (Hydrocodone Bit/Acetaminophen) 1 Each Tablet 1 Tab PO PRN Q6HRS PRN Nexium Capsule (Esomeprazole Magnesium) 40 Mg Capsule.dr 40 Mg PO DAILYAC Milk Of Magnesia (Magnesium Hydroxide) 2,400 Mg/10 Ml Oral.susp 2,400 Mg PO PRN Q24HRS PRN Metoprolol Tartrate 50 Mg Tablet 50 Mg PO BID Incruse Ellipta (Umeclidinium [place]) 62.5 Mcg Blst.w.dev 62.5 Mcg IH DAILY Duoneb 0.5-3(2.5) Mg/3 Ml (Albuterol/Ipratropium) 3 Ml Ampul.neb 3 Ml NEB Q4HRS Ferrous Sulfate 325 Mg Tablet 325 Mg PO BID Cough Drops (Menthol) 5 Mg Lozenge 5 Mg MM PRN Q4HRS PRN Lubricant Eye Drops (Carboxymethylcellulose Sodium) 15 Ml Drops 15 Ml OP PRN Q6HRS PRN Bumetanide 1 Mg Tablet 1 Mg PO BID Tylenol (Acetaminophen) 325 Mg Tablet 2 Tab PO PRN Q6HRS PRN Oxycodone Hcl 5 Mg Tablet 10 Mg PO PRN Nitrostat (Nitroglycerin) 0.4 Mg Tab.subl 0.4 Mg SL PRN Imodium A-D (Loperamide Hcl) 1 Mg/7.5 Ml Liquid 2 Mg PO PRN Symbicort 160-4.5 Mcg Inhaler (Budesonide/Formoterol Fumarate) 10.2 Gm Hfa.aer.ad 2 Puff IH BID Allopurinol 100 Mg Tablet 200 Mg PO DAILY Thiamine Hcl 100 Mg Tablet 100 Mg PO Folic Acid 1 Mg Tablet 1 Tab PO DAILY Aspirin 81 Mg Tab.chew 81 Mg PO DAILY Albuterol Sulfate Neb Soln (Albuterol Sulfate) 2.5 Mg/3 Ml Vial.neb 1 Vial NEB PRN Q4HRS Vitals/I & O Vital Sign - Last 24 Hours 02/22/18 02/22/18 02/22/18 02/22/18 11:39 11:45 11:47 12:00 Temp 97.7 Pulse 102 Resp 32 B/P (MAP) 148/61 (90) Pulse Ox 94 O2 Delivery BiPAP/CPAP Venturi Mask Bi-pap 02/22/18 02/22/18 02/22/18 02/22/18 12:13 12:45 13:45 13:54 Pulse 110 102 103 Resp 38 26 26 B/P (MAP) 120/73 (89) 141/62 (88) 141/62 Pulse Ox 96 O2 Delivery BiPAP/CPAP BiPAP/CPAP BiPAP/CPAP 02/22/18 02/22/18 02/22/18 02/22/18 13:54 14:45 15:45 16:17 Pulse 103 94 90 88 Resp 22 22 B/P (MAP) 141/62 129/65 (86) 124/30 (61) 129/65 O2 Delivery BiPAP/CPAP BiPAP/CPAP 02/22/18 02/22/18 02/22/18 02/22/18 16:19 16:29 17:36 17:45 Pulse 88 107 98 Resp 30 38 B/P (MAP) 129/65 144/52 (82) 144/59 (87) Pulse Ox 30 30 O2 Delivery Bi-pap BiPAP/CPAP BiPAP/CPAP 02/22/18 02/22/18 02/22/18 02/22/18 18:45 19:30 19:45 20:53 Temp 97.5 Pulse 97 96 96 Resp 17 28 23 B/P (MAP) 120/50 (73) 136/64 (88) 128/56 (80) Pulse Ox 96 97 98 O2 Delivery BiPAP/CPAP Bi-pap BiPAP/CPAP BiPAP/CPAP 02/22/18 02/22/18 02/22/18 02/22/18 21:48 22:20 22:49 23:40 Pulse 80 80 86 Resp 17 29 B/P (MAP) 131/51 (77) 131/51 125/62 (83) Pulse Ox 95 97 O2 Delivery BiPAP/CPAP Nasal Cannula Bi-pap O2 Flow Rate 5.0 02/22/18 02/23/18 02/23/18 02/23/18 23:47 00:47 01:47 02:50 Pulse 84 85 85 87 Resp 25 20 25 22 B/P (MAP) 131/62 (85) 144/79 (100) 154/64 (94) 148/59 (88) Pulse Ox 99 96 97 99 O2 Delivery Nasal Cannula Nasal Cannula Nasal Cannula Nasal Cannula O2 Flow Rate 5.0 5.0 5.0 5.0 02/23/18 02/23/18 02/23/18 02/23/18 03:45 04:02 04:39 04:48 Pulse 81 Resp 26 B/P (MAP) 138/70 (92) Pulse Ox 97 98 98 O2 Delivery Bi-pap Nasal Cannula Nasal Cannula Nasal Cannula O2 Flow Rate 5.0 5.0 5.0 02/23/18 02/23/18 02/23/18 02/23/18 04:50 05:27 05:48 06:13 Temp 97.7 Pulse 81 79 79 Resp 30 22 B/P (MAP) 137/77 (97) 119/59 (79) 119/59 Pulse Ox 98 97 O2 Delivery Nasal Cannula Nasal Cannula O2 Flow Rate 5.0 5.0 02/23/18 02/23/18 02/23/18 02/23/18 06:26 07:24 08:00 08:01 Pulse 76 84 88 Resp 20 20 B/P (MAP) 110/57 (74) 117/52 (73) Pulse Ox 98 98 O2 Delivery Nasal Cannula Nasal Cannula Nasal Cannula O2 Flow Rate 5.0 5.0 02/23/18 02/23/18 02/23/18 02/23/18 08:01 08:30 09:25 09:27 Pulse 84 99 99 Resp 18 20 B/P (MAP) 119/52 (74) 133/56 (81) Pulse Ox 98 97 98 O2 Delivery Nasal Cannula Nasal Cannula Nasal Cannula O2 Flow Rate 5.0 5.0 5.0 02/23/18 10:30 Temp 98.4 Pulse 97 Resp 18 B/P (MAP) 116/51 (72) Pulse Ox 98 O2 Delivery Nasal Cannula O2 Flow Rate 5.0 Intake and Output 02/22/18 02/22/18 02/23/18 15:00 23:00 07:00 Intake Total 800 ml 1212 ml 50 ml Output Total 600 ml 625 ml Balance 800 ml 612 ml -575 ml NUSRAT RICHARDS APRN February 23, 2018 11:39
--- NOTE | 2018-02-23 11:56 | PN ---
DATE: 02/22/2018 SUBJECTIVE: The patient is resting propped up in his bed, continues to be clearly very tachypneic. He became more short of breath with any exertion and has been treated with antibiotics, bronchodilators, steroids. He is on nitroglycerin drip and none has really made any difference to his shortness of breath. OBJECTIVE: GENERAL: When I examined him today, he was clearly tachypneic, pale, but not jaundiced, cyanosis or thyromegaly. No jugular distention with generalized anasarca. VITAL SIGNS: His heart rate was 110, blood pressure was 158/57, temperature was 97.7, respiratory rate was ____ and oxygen saturation was 96% on 6 liters of oxygen. HEAD, EYES, EARS, NOSE AND THROAT: Showed normocephalic, atraumatic. NECK: Supple. HEART: Showed normal first and second heart sounds with ____ gallop or murmur. CHEST: Shows central trachea, equally reduced expansion, reduced air entry and diffuse wheezing bilaterally. I could not really appreciate any crepitations. ABDOMEN: Distended, soft, nontender. NEUROLOGIC: He is very hard of hearing, otherwise all cranial nerves are intact. He moves upper extremities to much greater extent than his lower extremities, he is mostly bedbound and chair bound. His intake over the last 24 hours was 2340, output was 3900. LABORATORY DATA: As of this morning, his white cell count is up to 12,700, hemoglobin 9, hematocrit 29, MCV 87, and platelet count 203,000. His blood gas this morning showed a pH of 7.42, pCO2 of 42, pO2 of 75, bicarbonate 27, oxygen saturation was 95% and FiO2 of 28%. His chemistry showed a serum sodium 143, potassium 4, chloride 104, bicarbonate 32, anion gap of 7, BUN 51, creatinine 3, estimated GFR was 91 mL per minute. His glucose was 106, calcium was 8.5, magnesium was 1.5. Total bilirubin, AST, ALT, alkaline phosphatase were normal. His total protein was 6.7, albumin was 2.7. ASSESSMENT: 1. Acute on chronic diastolic congestive heart failure. 2. Atrial fibrillation with rapid ventricular response now much better controlled. 3. Hypertension, not optimally yet controlled. 4. Acute hypoxic respiratory failure. 5. Acute kidney injury on chronic kidney disease. 6. Generalized anasarca due to severe protein-calorie malnutrition. 7. Pulmonary hypertension. I will start him on BiPAP machine. I will add also some morphine as he is very anxious and also some alprazolam and the patient is DNR/DNI and was not receptive to the idea of intubation. We will repeat his blood gases like after an hour and decide further management accordingly. JOSELUIS ZELAYA MD DR: CLAY/hakeem JOB#: [id number] / [id number]
[2018-02-23] MEDS: LINEZOLID 600 MG TABLET PO SCH (21:00)
[2018-02-23] MEDS: MONTELUKAST 10 MG TABLET. PO SCH (21:00)
[2018-02-24] VITALS (12 sets, daily range): BP systolic 116–154; BP diastolic 55–74
--- NOTE | 2018-02-24 02:22 | PN ---
DATE: 02/23/2018 SUBJECTIVE: The patient's is resting, propped up in bed, eating his lunch. He seems to be somewhat much better compared to yesterday. He said that he is doing much better on some BiPAP; however, when he is off, he continued to have some shortness of breath, although he is not as tachypneic as he was yesterday. PHYSICAL EXAMINATION: GENERAL: When I examined him, he looked he was somewhat pale, but no jaundice, cyanosis, or thyromegaly. No jugular distention with generalized anasarca. VITAL SIGNS: His heart rate was 96, blood pressure was 125/58, temperature was 98.4, respiratory rate 20, and oxygen saturation was 98% on 5 liters of oxygen. HEAD, EYES, EARS, NOSE AND THROAT: Showed normocephalic, atraumatic. NECK: Supple. HEART: Showed normal first and second heart sounds with no gallop, rub or murmur. CHEST: Showed reduced central trachea, reduced expansion, reduced air entry, and scattered rhonchi, much less than yesterday. ABDOMEN: Distended, soft, nontender. NEUROLOGIC: He is hard of hearing, otherwise all his cranial nerves are intact. He moves upper extremities without difficulty. He has functional paraplegia and he is mostly bedbound, chair bound. His intake over the last hour was 3200, output was 4350. LABORATORY DATA: As of this morning, his serum sodium was 143, potassium 4.4, chloride 103, bicarbonate 32, anion gap of 8, BUN 59, creatinine 3.2, estimated GFR was 19 mL per minute, his glucose 177, calcium was 8.5. Total bilirubin, AST, ALT, alkaline phosphatase were normal. Total protein was 6.7, albumin 3. White cell count was 17,500, hemoglobin 9, hematocrit 39, MCV 89, and platelet count 296,000. ASSESSMENT AND PLAN: 1. [id number] diastolic congestive heart failure. 2. Atrial fibrillation with rapid ventricular response, now much better controlled. 3. Hypertension, definitely much better controlled, now on diltiazem and Imdur. 4. Acute hypoxic respiratory failure. 5. Acute kidney injury on chronic kidney disease. 6. Generalized anasarca due to severe protein-calorie malnutrition. 7. Pulmonary hypertension. 8. The patient did very well on his BiPAP machine and he is definitely much improved today. We will continue with that and continue with fluid restriction. Continue with IV antibiotic, steroids, inhalers, and nebulized treatment, and evaluate him again tomorrow. JOSELUIS ZELAYA MD DR: CLAY/hakeem JOB#: [id number] / [id number]
[2018-02-24] MEDS: ALPRAZolam 0.5 MG TABLET PO PRN ×2 (03:19→14:06)
[2018-02-24] MEDS: MEROPENEM 500 MG in IV NORMAL SALINE 50ML 50 ML IV SCH ×3 (05:44→22:21)
[2018-02-24] MEDS: methylPREDNISolone SOD SUCC PF 40 MG/ML VIAL. IV SCH ×2 (05:44→14:07)
[2018-02-24] MEDS: IPRATRPIUM/ALBUTEROL 0.5/2.5MG 3 ML NEBU. NEB SCH ×4 (06:16→21:33)
[2018-02-24 06:40] LABS: ALBUMIN 3.2 g/dL (3.4-5.0); ALBUMIN/GLOBULIN RATIO 0.9 (1.0-1.7); CALCIUM 8.3 mg/dL (8.5-10.1); CREATININE 3.6 mg/dL (0.7-1.3); GFR 16.9; MAGNESIUM 1.7 mg/dL (1.8-2.4); POTASSIUM 4.4 mmol/L (3.5-5.1); TOTAL BILIRUBIN 0.4 mg/dL (0.2-1.0); TOTAL PROTEIN 6.9 g/dL (6.4-8.2)
[2018-02-24 06:42] LABS: BASO % 0 % (0-3); EOS % 0 % (0-3); HEMATOCRIT 28.5 % (39.0-53.0); HEMOGLOBIN 8.9 g/dL (13.0-17.5); LYMPH # 0.6 x10^3/uL (1.0-4.8); LYMPH % 3 % (24-48); MEAN CORPUSCULAR HEMOGLOBIN 28 pg (25-35); MEAN CORPUSCULAR HGB CONC 31 g/dL (31-37); MEAN CORPUSCULAR VOLUME 89 fL (79-100); MONO # 0.6 x10^3/uL (0.0-1.1); MONO % 3 % (0-9); NEUT # 19.3 x10^3uL (1.8-7.7); NEUT % 94 % (31-73); PLATELET COUNT 207 x10^3/uL (140-400); RED BLOOD COUNT 3.18 x10^6/uL (4.30-5.70); RED CELL DISTRIBUTION WIDTH 17.3 % (11.5-14.5); WHITE BLOOD COUNT 20.5 x10^3/uL (4.0-11.0)
[2018-02-24 07:59] LABS: % BANDS 5 % (0-9); % LYMPHS 8 % (24-48); % MONOS 4 % (0-10); % MYELOS 1 % (0-0); % OTHERS 1 % (0-0); % SEGS 80 % (35-66)
[2018-02-24 08:14] LABS: PLT ESTIMATE ADEQUATE (ADEQUATE)
[2018-02-24 08:15] LABS: ANISOCYTOSIS SLIGHT; HYPOCHROMIA SLIGHT; POLYCHROMASIA SLIGHT
[2018-02-24 08:16] LABS: OVALOCYTES OCC; TARGET CELLS OCC; TEAR DROP CELLS OCC
[2018-02-24 08:17] LABS: SCHISTOCYTES OCC
[2018-02-24] MEDS ORDERED: FUROSEMIDE 40 MG/4 ML VIAL IVP SCH (09:00)
[2018-02-24] MEDS: FLUTICASONE 50MCG/NASAL SPRAY 16GM BOTTLE. NS SCH (09:00)
[2018-02-24] MEDS: ALBUMIN HUMAN 25% 50 ML IV SCH (09:00)
[2018-02-24] MEDS: ASPIRIN 81 MG TAB.CHEW PO SCH (09:14)
[2018-02-24] MEDS: FOLIC ACID 1 MG TABLET PO SCH (09:14)
[2018-02-24] MEDS: CHOLECALCIFEROL (VITAMIN D3) 1,000 UNIT TABLET PO SCH (09:14)
[2018-02-24] MEDS: ISOSORBIDE MONONITRATE ER 30 MG TAB.ER.24H PO SCH (09:15)
[2018-02-24] MEDS: PANTOPRAZOLE 40 MG TABLET. PO SCH (09:16)
[2018-02-24] MEDS: LACTOBACILLUS RHAMNOSUS GG 1 CAPSULE. PO SCH ×2 (09:16→20:58)
[2018-02-24] MEDS: ALLOPURINOL 100 MG TABLET. PO SCH (09:16)
[2018-02-24] MEDS: FERROUS SULFATE 325 MG TABLET. PO SCH ×2 (09:16→20:58)
[2018-02-24] MEDS: BUDESONIDE 0.5 MG/2 ML NEBU NEB SCH ×2 (09:17→21:33)
[2018-02-24] MEDS: LINEZOLID 600 MG TABLET PO SCH ×2 (09:17→20:58)
[2018-02-24] MEDS: NYSTATIN TOPICAL POWDER 15GM BOTTLE. TP SCH ×2 (09:18→21:00)
--- NOTE | 2018-02-24 11:25 | PDOC ---
NUSRAT RICHARDS CHECK CASHIER 02/24/18 1125: PROGRESS NOTES Diagnosis Problem Problems Medical Problems: (1) Anemia of unknown etiology Status: Acute (2) CHF exacerbation Status: Acute (3) Uncontrolled atrial fibrillation Status: Acute Assessment Problems Medical Problems: (1) Anemia of unknown etiology Status: Acute (2) CHF exacerbation Status: Acute (3) Uncontrolled atrial fibrillation Status: Acute 1. Persistent Atrial fibrillation - rate control improved on current Rx 2. HTN - controlled 3. Acute on chronic diastolic HF - down 11 lbs since admission, 4 lbs since yesterday. Significant improvement in peripheral edema. On [place] oxygen. 4. NAYELY on CKD - Cr up mildly from yesterday (3.8). Hold lasix. Consider transfer for renal eval. Subjective on [place] oxygen but continues to complain of some shortness of breath. edema getting better. no chest pain. Objective Vital Signs Date Time Temp Pulse Resp B/P (MAP) Pulse Ox O2 Delivery O2 Flow Rate FiO2 02/24/18 09:26 Nasal Cannula 2.5 02/24/18 09:18 97 02/24/18 09:15 87 154/64 02/24/18 08:34 15 02/24/18 05:40 97.6 Intake and Output 02/24/18 07:00 Intake Total 1148 ml Output Total 400 ml Balance 748 ml Intake Oral 998 ml IV Total 150 ml Output Urine Total 400 ml Abdomen: Normal bowel sounds, Soft Heart: Other (IRR, No gallops, clicks or rubs) Extremities: Other (++ edema improving) General: Alert, Oriented X3, Cooperative Lungs: Other (decreased bases with occ exp wheeze) Neuro: Normal speech Psych/Mental Status: Mental status NL, Mood NL Review of Relevant I have reviewed the following items yaron (where applicable) has been applied. Labs Laboratory Tests Test 02/22/18 11:37 02/23/18 05:38 02/24/18 05:42 Blood Gas pH 7.42 (7.35-7.46) Blood Gas PCO2 42 mmHg (35-46) Blood Gas PO2 75 mmHg (80-100) Blood Gas HCO3 27 mmol/L (21-28) Arterial Bld O2 Saturation (Calc) 95 % (92-99) FiO2 28 % White Blood Count 17.5 x10^3/uL (4.0-11.0) 20.5 x10^3/uL (4.0-11.0) Red Blood Count 3.28 x10^6/uL (4.30-5.70) 3.18 x10^6/uL (4.30-5.70) Hemoglobin 9.0 g/dL (13.0-17.5) 8.9 g/dL (13.0-17.5) Hematocrit 29.1 % (39.0-53.0) 28.5 % (39.0-53.0) Mean Corpuscular Volume 89 fL (79-100) 89 fL (79-100) Mean Corpuscular Hemoglobin 27 pg (25-35) 28 pg (25-35) Mean Corpuscular Hemoglobin Concent 31 g/dL (31-37) 31 g/dL (31-37) Red Cell Distribution Width 17.0 % (11.5-14.5) 17.3 % (11.5-14.5) Platelet Count 196 x10^3/uL (140-400) 207 x10^3/uL (140-400) Sodium Level 143 mmol/L (136-145) 142 mmol/L (136-145) Potassium Level 4.4 mmol/L (3.5-5.1) 4.4 mmol/L (3.5-5.1) Chloride Level 103 mmol/L (98-107) 102 mmol/L (98-107) Carbon Dioxide Level 32 mmol/L (21-32) 32 mmol/L (21-32) Anion Gap 8 (6-14) 8 (6-14) Blood Urea Nitrogen 59 mg/dL (8-26) 76 mg/dL (8-26) Creatinine 3.2 mg/dL (0.7-1.3) 3.6 mg/dL (0.7-1.3) Estimated GFR (Cockcroft-Gault) 19.4 16.9 BUN/Creatinine Ratio 18 (6-20) 21 (6-20) Glucose Level 177 mg/dL (70-99) 216 mg/dL (70-99) Calcium Level 8.5 mg/dL (8.5-10.1) 8.3 mg/dL (8.5-10.1) Total Bilirubin 0.3 mg/dL (0.2-1.0) 0.4 mg/dL (0.2-1.0) Aspartate Amino Transf (AST/SGOT) 15 U/L (15-37) 62 U/L (15-37) Alanine Aminotransferase (ALT/SGPT) 14 U/L (16-63) 47 U/L (16-63) Alkaline Phosphatase 79 U/L (46-116) 94 U/L (46-116) Total Protein 6.7 g/dL (6.4-8.2) 6.9 g/dL (6.4-8.2) Albumin 3.0 g/dL (3.4-5.0) 3.2 g/dL (3.4-5.0) Albumin/Globulin Ratio 0.8 (1.0-1.7) 0.9 (1.0-1.7) Neutrophils (%) (Auto) 94 % (31-73) Lymphocytes (%) (Auto) 3 % (24-48) Monocytes (%) (Auto) 3 % (0-9) Eosinophils (%) (Auto) 0 % (0-3) Basophils (%) (Auto) 0 % (0-3) Neutrophils # (Auto) 19.3 x10^3uL (1.8-7.7) Lymphocytes # (Auto) 0.6 x10^3/uL (1.0-4.8) Monocytes # (Auto) 0.6 x10^3/uL (0.0-1.1) Eosinophils # (Auto) 0.0 x10^3/uL (0.0-0.7) Basophils # (Auto) 0.0 x10^3/uL (0.0-0.2) Segmented Neutrophils % 80 % (35-66) Band Neutrophils % 5 % (0-9) Lymphocytes % 8 % (24-48) Monocytes % 4 % (0-10) Myelocytes % 1 % (0-0) Other Cells % 1 % (0-0) Platelet Estimate Adequate (ADEQUATE) Large Platelets Occ Polychromasia Slight Hypochromasia Slight Basophilic Stippling Present Anisocytosis Slight Target Cells Occ Tear Drop Cells Occ Ovalocytes Occ Schistocytes Occ Magnesium Level 1.7 mg/dL (1.8-2.4) Medications Current Medications Furosemide (Lasix) 40 mg 1X ONCE IVP Last administered on 02/19/18at 11:21; Start 02/19/18 at 11:00; Stop 02/19/18 at 11:09; Status DC Albuterol/ Ipratropium (Duoneb) 3 ml 1X ONCE NEB Last administered on at 11:22; Start 02/19/18 at 11:00; Stop 02/19/18 at 11:09; Status DC Digoxin (Lanoxin) 1,000 mcg 1X ONCE IV ; Start 02/19/18 at 11:30; Stop at 11:36; Status DC Digoxin (Lanoxin) 250 mcg 1X ONCE IV Last administered on 02/19/18at 11:49; Start 02/19/18 at 11:45; Stop 02/19/18 at 11:46; Status DC Digoxin (Lanoxin) 250 mcg 1X ONCE IV Last administered on 02/19/18at 15:53; Start 02/19/18 at 12:30; Stop 02/19/18 at 12:32; Status DC Furosemide (Lasix) 40 mg 1X ONCE IVP Last administered on 02/19/18at 12:49; Start 02/19/18 at 12:45; Stop 02/19/18 at 12:46; Status DC Ondansetron HCl (Zofran) 4 mg PRN Q8HRS PRN IV NAUSEA/VOMITING; Start 02/19/18 at 13:45 Ondansetron HCl (Zofran Odt) 4 mg PRN Q8HRS PRN PO NAUSEA/VOMITING; Start 02/19 at 14:15 Acetaminophen (Tylenol) 650 mg PRN Q6HRS PRN PO PAIN; Start 02/19/18 at 15:30 Albuterol Sulfate (Ventolin) 2.5 mg PRN Q4HRS PRN NEB SHORTNESS OF BREATH Last administered on 02/21/18at 03:58; Start 02/19/18 at 15:30; Stop 02/21/18 at 12:05 ; Status DC Diclofenac Sodium (Voltaren) 4 stefani QIDPRN PRN TP PAIN; Start 02/19/18 at 15:30 Ferrous Sulfate (Feosol) 325 mg BID PO Last administered on 02/24/18at 09:16; Start 02/19/18 at 21:00 Albuterol/ Ipratropium (Duoneb) 3 ml Q4HRS NEB ; Start 02/19/18 at 16:00; Stop 02/19/18 at 16:00; Status DC Nystatin (Nystop) 1 stefani BID TP Last administered on 02/24/18 09:18; Start at 21:00 Allopurinol (Zyloprim) 200 mg DAILY PO Last administered on 02/24/18 09:16; Start 02/20/18 at 09:00 Aspirin (Children'S Aspirin) 81 mg DAILYWBKFT PO Last administered on at 09:14; Start 02/20/18 at 08:00 Non-Formulary Medication (Budesonide/ Formoterol Fumarate (Symbicort 160-4.5 Mcg Inhaler)) 2 puff BID IH ; Start 02/19/18 at 21:00; Stop 02/19/18 at 21:00; Status DC Non-Formulary Medication (Calcium Carb/ Magnesium Hydrox (Rolaids Chewable Tablet)) 1 each PRN Q8HRS PRN PO DYSPEPSIA; Start 02/19/18 at 15:30; Stop 02/19 at 15:44; Status DC Calcium Carbonate/ Glycine (Tums) 1,500 mg PRN Q8HRS PRN PO INDIGESTION; Start 02/19/18 at 15:45 Artificial Tears (Artificial Tears) 1 drop PRN Q6HRS PRN OU DRY EYE; Start at 16:00; Stop 02/19/18 at 17:45; Status DC Vitamin D (Vitamin D3) 5,000 unit DAILY PO Last administered on 02/24/18at 09:14 ; Start 02/20/18 at 09:00 Pantoprazole Sodium (Protonix) 40 mg DAILYAC PO Last administered on 02/24/18 09:16; Start 02/20/18 at 07:30 Folic Acid (Folic Acid) 1 mg DAILY PO Last administered on 02/24/18 09:14; Start 02/20/18 at 09:00 Acetaminophen/ Hydrocodone Bitart (Lortab 5/325) 1 tab PRN Q6HRS PRN PO PAIN; Start 02/19/18 at 16:00 Albumin Human 50 ml @ 50 mls/hr BID IV Last administered on 02/23/18at 17:43; Start 02/19/18 at 21:00; Stop 02/23/18 at 20:11; Status DC Furosemide (Lasix) 40 mg BID IVP Last administered on 02/23/18at 17:43; Start at 09:00; Stop 02/23/18 at 20:11; Status DC Albuterol/ Ipratropium (Duoneb) 3 ml QID NEB Last administered on 02/24/18at 09: 17; Start 02/19/18 at 16:00 Budesonide (Pulmicort) 0.5 mg RTBID NEB Last administered on 02/24/18at 09:17; Start 02/19/18 at 20:00 Amiodarone HCl 900 mg/Dextrose 518 ml @ 0 mls/hr 1X ONCE IV Last administered on 02/19/18at 18:38; Start 02/19/18 at 17:15; Stop 02/19/18 at 17:16; Status DC Diltiazem HCl (Cardizem) 30 mg Q8HRS PO Last administered on 02/22/18at 13:54; Start 02/19/18 at 17:30; Stop 02/22/18 at 15:09; Status DC Artificial Tears (Artificial Tears) 1 drop PRN Q6HRS PRN OU DRY EYE; Start at 18:00 Nitroglycerin (Nitro-Bid Oint) 0.5 inch Q8HRS TP Last administered on at 06:03; Start 02/20/18 at 14:30; Stop 02/21/18 at 09:52; Status DC Morphine Sulfate (Morphine 2mg Syringe) 2 mg PRN Q4HRS PRN IV PAIN; Start 02/20 at 14:15; Stop 02/21/18 at 14:36; Status DC Hydralazine HCl (Apresoline) 50 mg Q8HRS PO Last administered on 02/21/18at 09: 40; Start 02/21/18 at 09:22; Stop 02/21/18 at 12:05; Status DC Nitroglycerin/ Dextrose 250 ml @ 0 mls/hr CONT PRN IV PER PROTOCOL Last administered on 02/22/18at 05:15; Start 02/21/18 at 09:30 Methylprednisolone Sodium Succinate (SOLU-Medrol 40MG VIAL) 40 mg Q8HRS IV Last administered on 02/24/18 05:44; Start 02/21/18 at 09:23 Albuterol Sulfate (Ventolin) 2.5 mg PRN Q2HR PRN NEB SHORTNESS OF BREATH Last administered on 02/22/18 09:37; Start 02/21/18 at 12:15 Hydralazine HCl (Apresoline) 100 mg Q8HRS PO Last administered on 02/23/18 21: 00; Start 02/21/18 at 14:00 Montelukast Sodium (Singulair) 10 mg QHS PO Last administered on 02/23/18 21: 00; Start 02/21/18 at 21:00 Linezolid 300 ml @ 300 mls/hr Q12H IV Last administered on 02/23/18 01:35; Start 02/21/18 at 13:00; Stop 02/23/18 at 12:51; Status DC Meropenem 500 mg/ Sodium Chloride 50 ml @ 100 mls/hr Q8HRS IV Last administered on 02/24/18 05:44; Start 02/21/18 at 14:00 Fluticasone Propionate (Flonase) 2 spray DAILY NS Last administered on 08:00; Start 02/21/18 at 14:00 Sodium Chloride ([place] Saline Nasal) 1 stefani PRN Q4HRS PRN NS NASAL CONGESTION; Start 02/21/18 at 13:15 Morphine Sulfate (Morphine 4mg Syringe) 2 mg PRN Q4HRS PRN IV PAIN Last administered on 02/22/18at 12:13; Start 02/21/18 at 14:45; Stop 02/22/18 at 12:28 ; Status DC Lactobacillus Rhamnosus (Culturelle) 1 cap BID PO Last administered on 09:16; Start 02/22/18 at 09:00 Fentanyl Citrate (Fentanyl 2ml Vial) 25 mcg Q3H PRN IV PAIN; Start 02/22/18 at 12:00; Stop 02/22/18 at 12:28; Status DC Alprazolam (Xanax) 0.5 mg PRN Q8HRS PRN PO ANXIETY / AGITATION Last administered on 02/24/18 03:19; Start 02/22/18 at 12:00 Perflutren Protein Type A Microsphe (Optison) 0.66 mg 1X ONCE IV Last administered on 02/21/18at 16:00; Start 02/21/18 at 16:00; Stop 02/22/18 at 12:11 ; Status DC Morphine Sulfate (Morphine 4mg Syringe) 2 mg PRN Q3HRS PRN IV PAIN Last administered on 02/24/18at 03:19; Start 02/22/18 at 12:15 Diltiazem HCl (Cardizem 24hr Cd) 120 mg 1X ONCE PO Last administered on at 16:17; Start 02/22/18 at 15:30; Stop 02/22/18 at 15:31; Status DC Diltiazem HCl (Cardizem 24hr Cd) 120 mg DAILY PO Last administered on at 09:15; Start 02/23/18 at 09:00 Isosorbide Mononitrate (Imdur) 60 mg 1X ONCE PO Last administered on at 16:19; Start 02/22/18 at 15:30; Stop 02/22/18 at 15:31; Status DC Isosorbide Mononitrate (Imdur) 60 mg DAILY PO Last administered on 02/24/18at 09 :15; Start 02/23/18 at 09:00 Linezolid (Zyvox) 600 mg BID PO Last administered on 02/24/18at 09:17; Start at 21:00 Albumin Human 50 ml @ 50 mls/hr DAILY IV ; Start 02/24/18 at 09:00; Stop at 23:59 Furosemide (Lasix) 40 mg DAILY IVP ; Start 02/24/18 at 09:00; Stop 02/25/18 at 23:55 Active Scripts Active Reported Levaquin (Levofloxacin) 500 Mg Tablet 1 Tab PO DAILY 7 Days Zoloft (Sertraline Hcl) 25 Mg Tablet 3 Tab PO DAILY Nystatin 15 Gm Powder 1 Stefani TP BID Cortef (Hydrocortisone) 10 Mg Tablet 30 Mg PO DAILY Tizanidine Hcl (Tizanidine HCl) 4 Mg Tablet 4 Mg PO PRN QHS PRN Voltaren (Diclofenac Sodium) 100 Gm Gel..gram. 4 Gm TP QIDPRN PRN Vitamin D3 (Cholecalciferol (Vitamin D3)) 5,000 Unit Tablet 5,000 Unit PO DAILY Calci-Chew (Calcium Carbonate) 500 Mg Tab.chew 1,500 Mg PO PRN Q8HRS PRN Tizanidine Hcl (Tizanidine HCl) 4 Mg Tablet 4 Mg PO BID Saline Nasal [place] (Sodium Chloride) 30 Ml [place] 1-2 Spr NS PRN Q3HRS Rolaids Chewable Tablet (Calcium Carb/Magnesium Hydrox) 1 Each Tab.chew 1 Each PO PRN Q8HRS PRN [place] 5-325 Tablet (Hydrocodone Bit/Acetaminophen) 1 Each Tablet 1 Tab PO PRN Q6HRS PRN Nexium Capsule (Esomeprazole Magnesium) 40 Mg Capsule.dr 40 Mg PO DAILYAC Milk Of Magnesia (Magnesium Hydroxide) 2,400 Mg/10 Ml Oral.susp 2,400 Mg PO PRN Q24HRS PRN Metoprolol Tartrate 50 Mg Tablet 50 Mg PO BID Incruse Ellipta (Umeclidinium [place]) 62.5 Mcg Blst.w.dev 62.5 Mcg IH DAILY Duoneb 0.5-3(2.5) Mg/3 Ml (Albuterol/Ipratropium) 3 Ml Ampul.neb 3 Ml NEB Q4HRS Ferrous Sulfate 325 Mg Tablet 325 Mg PO BID Cough Drops (Menthol) 5 Mg Lozenge 5 Mg MM PRN Q4HRS PRN Lubricant Eye Drops (Carboxymethylcellulose Sodium) 15 Ml Drops 15 Ml OP PRN Q6HRS PRN Bumetanide 1 Mg Tablet 1 Mg PO BID Tylenol (Acetaminophen) 325 Mg Tablet 2 Tab PO PRN Q6HRS PRN Oxycodone Hcl 5 Mg Tablet 10 Mg PO PRN Nitrostat (Nitroglycerin) 0.4 Mg Tab.subl 0.4 Mg SL PRN Imodium A-D (Loperamide Hcl) 1 Mg/7.5 Ml Liquid 2 Mg PO PRN Symbicort 160-4.5 Mcg Inhaler (Budesonide/Formoterol Fumarate) 10.2 Gm Hfa.aer.ad 2 Puff IH BID Allopurinol 100 Mg Tablet 200 Mg PO DAILY Thiamine Hcl 100 Mg Tablet 100 Mg PO Folic Acid 1 Mg Tablet 1 Tab PO DAILY Aspirin 81 Mg Tab.chew 81 Mg PO DAILY Albuterol Sulfate Neb Soln (Albuterol Sulfate) 2.5 Mg/3 Ml Vial.neb 1 Vial NEB PRN Q4HRS Vitals/I & O Vital Sign - Last 24 Hours 02/23/18 02/23/18 02/23/18 02/23/18 11:30 12:11 12:11 13:34 Pulse 100 96 85 Resp 18 20 18 B/P (MAP) 140/54 (82) 125/58 (80) 97/39 (58) Pulse Ox 98 98 98 O2 Delivery Nasal Cannula Nasal Cannula Nasal Cannula Nasal Cannula O2 Flow Rate 5.0 5.0 5.0 02/23/18 02/23/18 02/23/18 02/23/18 14:00 15:07 15:30 16:00 Temp 98.5 Pulse 94 82 Resp 18 B/P (MAP) 127/51 (76) Pulse Ox 98 98 O2 Delivery BiPAP/CPAP Nasal Cannula Nasal Cannula O2 Flow Rate 5.0 02/23/18 02/23/18 02/23/18 02/23/18 18:30 19:25 19:52 20:00 Temp 97.8 Pulse 95 92 Resp 18 20 B/P (MAP) 151/60 (90) 131/53 (79) Pulse Ox 98 99 O2 Delivery Nasal Cannula Nasal Cannula Nasal Cannula O2 Flow Rate 5.0 5.0 5.0 02/23/18 02/23/18 02/23/18 02/23/18 20:20 20:25 21:00 21:06 Pulse 92 92 Resp 24 B/P (MAP) 131/53 142/58 (86) Pulse Ox 97 97 97 O2 Delivery Nasal Cannula Nasal Cannula Nasal Cannula O2 Flow Rate 5.0 5.0 5.0 02/23/18 02/23/18 02/23/18 02/23/18 21:30 22:25 23:28 23:59 Pulse 89 92 101 Resp 26 27 23 B/P (MAP) 136/58 (84) 128/57 (80) 127/56 (79) Pulse Ox 98 97 96 O2 Delivery Nasal Cannula Nasal Cannula Nasal Cannula Nasal Cannula O2 Flow Rate 5.0 5.0 5.0 5.0 02/24/18 02/24/18 02/24/18 02/24/18 00:28 01:29 02:28 03:19 Pulse 100 93 88 Resp 21 20 26 26 B/P (MAP) 135/61 (85) 128/60 (82) 119/66 (83) Pulse Ox 99 100 97 96 O2 Delivery Nasal Cannula Nasal Cannula Nasal Cannula Nasal Cannula O2 Flow Rate 5.0 5.0 5.0 5.0 02/24/18 02/24/18 02/24/18 02/24/18 03:32 03:50 04:00 04:32 Pulse 82 96 Resp 25 22 28 B/P (MAP) 141/61 (87) 129/61 (83) Pulse Ox 99 95 O2 Delivery Nasal Cannula Nasal Cannula Nasal Cannula Nasal Cannula O2 Flow Rate 5.0 5.0 5.0 5.0 02/24/18 02/24/18 02/24/18 02/24/18 05:07 05:40 05:45 06:45 Temp 97.6 Pulse 94 94 87 Resp 16 15 B/P (MAP) 116/59 (78) 116/59 134/55 (81) Pulse Ox 97 98 98 O2 Delivery Nasal Cannula Nasal Cannula Nasal Cannula O2 Flow Rate 5.0 5.0 5.0 02/24/18 02/24/18 02/24/18 02/24/18 07:35 08:00 08:34 09:15 Pulse 87 90 87 Resp 15 15 B/P (MAP) 154/64 (94) 137/66 (89) 154/64 Pulse Ox 98 97 O2 Delivery Nasal Cannula Nasal Cannula Nasal Cannula O2 Flow Rate 2.5 2.5 2.5 02/24/18 02/24/18 02/24/18 09:15 09:18 09:26 Pulse 87 B/P (MAP) 154/64 Pulse Ox 97 O2 Delivery Nasal Cannula O2 Flow Rate 2.5 2.5 Intake and Output 02/23/18 02/23/18 02/24/18 15:00 23:00 07:00 Intake Total 418 ml 100 ml 630 ml Output Total 400 ml Balance 418 ml -300 ml 630 ml HILARIO HARDIN MD 02/25/18 0737: PROGRESS NOTES Review of Relevant Patient seen and examined. No acute events overnight. Patient still has significant wheezing. Significant dyspnea. O: VSS, oxygenation significantly improved. Bilateral wheezing LE edema persists Labs reviewed: Significant renal insuff, Cr 3.8, WBC elevated. Impression: 1. NAYELY with diastolic HF and afib Plan: 1. He may need HD with progressive renal disease. Lungs have not improved despite steriods and nebulizers. Defer to Dr. Cortez for pulm treatment. 2. Overall, pt. thinks he feels better but objectively he has not been much better. Poor overall prognosis. May need hospice care. NUSRAT RICHARDS APRN February 24, 2018 11:25 HILARIO HARDIN MD February 25, 2018 07:37
[2018-02-24] MEDS ORDERED: IV NORMAL SALINE 1,000ML 1,000 ML IV ONE (13:30)
[2018-02-24] MEDS: ALBUTEROL SULFATE 2.5 MG/3 ML NEBU. NEB PRN (14:07)
[2018-02-24] MEDS: MONTELUKAST 10 MG TABLET. PO SCH (20:58)
[2018-02-24 23:00] LABS: BASO % 0 % (0-3); EOS % 0 % (0-3); HEMATOCRIT 31.1 % (39.0-53.0); HEMOGLOBIN 9.6 g/dL (13.0-17.5); LYMPH # 0.4 x10^3/uL (1.0-4.8); LYMPH % 2 % (24-48); MEAN CORPUSCULAR HEMOGLOBIN 28 pg (25-35); MEAN CORPUSCULAR HGB CONC 31 g/dL (31-37); MEAN CORPUSCULAR VOLUME 90 fL (79-100); MONO # 0.8 x10^3/uL (0.0-1.1); MONO % 3 % (0-9); NEUT # 22.9 x10^3uL (1.8-7.7); NEUT % 95 % (31-73); PLATELET COUNT 233 x10^3/uL (140-400); RED BLOOD COUNT 3.47 x10^6/uL (4.30-5.70); RED CELL DISTRIBUTION WIDTH 17.6 % (11.5-14.5); WHITE BLOOD COUNT 24.1 x10^3/uL (4.0-11.0)
[2018-02-24 23:12] LABS: ALBUMIN 3.5 g/dL (3.4-5.0); ALBUMIN/GLOBULIN RATIO 0.9 (1.0-1.7); CALCIUM 8.1 mg/dL (8.5-10.1); CREATININE 3.8 mg/dL (0.7-1.3); GFR 15.9; POTASSIUM 4.5 mmol/L (3.5-5.1); TOTAL BILIRUBIN 0.5 mg/dL (0.2-1.0); TOTAL PROTEIN 7.3 g/dL (6.4-8.2)
[2018-02-25] MEDS ORDERED: methylPREDNISolone SOD SUCC PF 40 MG/ML VIAL. IV SCH (02:00)
--- NOTE | 2018-02-25 03:28 | PN ---
DATE: 02/24/2018 SUBJECTIVE: The patient is resting slightly propped up in bed, definitely more comfortable, not tachypneic, cannot hear wheezing without stethoscope. He is only on 2.5 liters of oxygen, maintaining his oxygen saturation at 95%. PHYSICAL EXAMINATION: GENERAL: When I examined him, he looked well, slightly pale, but no jaundice, cyanosis or thyromegaly. No jugular venous distension. No lower limb edema. VITAL SIGNS: His heart rate was 101, blood pressure was 125/69, temperature was 98, respiratory rate was 22 and oxygen saturation was 95% on 2.5 liters of oxygen by nasal cannula. HEAD, EYES, EARS, NOSE AND THROAT: Showed normocephalic, atraumatic. NECK: Supple. HEART: Showed normal first and second heart sounds with no gallop, rub or murmur. CHEST: Clear to auscultation. No crepitation or rhonchi. ABDOMEN: Distended, soft, nontender. NEUROLOGIC: He is very hard of hearing, but otherwise all cranial nerves intact. He moves upper extremities to much good extent than lower extremities, mostly bedbound and chair bound. His intake over the last 24 hours was 2360, output was 1225. LABORATORY DATA: His lab work this morning showed a white cell count of 20,500, hemoglobin 8.9, hematocrit 28, MCV 89 and platelet count of 207,000. His chemistry showed a serum sodium 142, potassium 4.4, chloride 102, bicarbonate 32, anion gap of 8, BUN 76, creatinine 3.6. Estimated GFR was 17 mL per minute. His glucose was 216, calcium was 8.3, magnesium was 1.7. Total bilirubin, AST, ALT, alkaline phosphatase were normal. Total protein was 6.9, albumin was 3.2. ASSESSMENT: 1. Acute on chronic diastolic congestive heart failure, much improved. 2. Atrial fibrillation with rapid ventricular response, now much better controlled. 3. Hypertension definitely much better controlled, on diltiazem and Imdur. 4. Acute hypoxic respiratory failure with marked bronchospasm, resolved. 5. Acute on chronic kidney injury, worsening with the creatinine going up to 3.6. 6. Generalized anasarca, resolved. We will start him on IV fluid. 7. Pulmonary hypertension. 8. The patient did very well on his BiPAP machine; however, he has been off the BiPAP and only 2.5 liters oxygen from last night. PLAN: Continue with Linezolid. Continue with diltiazem and isosorbide mononitrate. Continue with meropenem. Continue with the IV steroids and nebulized albuterol and Atrovent. Hopefully, tomorrow, we can cut down the steroids twice a day and eventually to even equivalent course of oral steroids. JOSELUIS ZELAYA MD DR: CLAY/hakeem JOB#: [id number] / [id number]
[2018-02-25 05:55] VITALS: BP 159/74
[2018-02-25 05:55] LABS: HEMATOCRIT 31.4 % (39.0-53.0); HEMOGLOBIN 9.6 g/dL (13.0-17.5); RED BLOOD COUNT 3.47 x10^6/uL (4.30-5.70); RED CELL DISTRIBUTION WIDTH 17.7 % (11.5-14.5); WHITE BLOOD COUNT 23.9 x10^3/uL (4.0-11.0)
[2018-02-25] MEDS: MEROPENEM 500 MG in IV NORMAL SALINE 50ML 50 ML IV SCH (05:57)
[2018-02-25 06:06] LABS: ALBUMIN 3.4 g/dL (3.4-5.0); ALBUMIN/GLOBULIN RATIO 0.9 (1.0-1.7); CALCIUM 8.2 mg/dL (8.5-10.1); CREATININE 3.7 mg/dL (0.7-1.3); GFR 16.4; POTASSIUM 4.4 mmol/L (3.5-5.1); TOTAL BILIRUBIN 0.5 mg/dL (0.2-1.0); TOTAL PROTEIN 7.3 g/dL (6.4-8.2)
[2018-02-25] MEDS: IPRATRPIUM/ALBUTEROL 0.5/2.5MG 3 ML NEBU. NEB SCH (06:16)
[2018-02-25] MEDS: ALBUMIN HUMAN 25% 50 ML IV SCH (07:57)
[2018-02-25] MEDS: LACTOBACILLUS RHAMNOSUS GG 1 CAPSULE. PO SCH (08:04)
[2018-02-25] MEDS: CHOLECALCIFEROL (VITAMIN D3) 1,000 UNIT TABLET PO SCH (08:04)
[2018-02-25] MEDS: ISOSORBIDE MONONITRATE ER 30 MG TAB.ER.24H PO SCH (08:04)
[2018-02-25] MEDS: ALLOPURINOL 100 MG TABLET. PO SCH (08:05)
[2018-02-25] MEDS: FERROUS SULFATE 325 MG TABLET. PO SCH (08:05)
[2018-02-25] MEDS: PANTOPRAZOLE 40 MG TABLET. PO SCH (08:05)
[2018-02-25] MEDS: ASPIRIN 81 MG TAB.CHEW PO SCH (08:05)
[2018-02-25] MEDS: FOLIC ACID 1 MG TABLET PO SCH (08:05)
[2018-02-25] MEDS: LINEZOLID 600 MG TABLET PO SCH (08:09)
[2018-02-25] MEDS: NYSTATIN TOPICAL POWDER 15GM BOTTLE. TP SCH (08:10)
[2018-02-25] MEDS ORDERED: IV NORMAL SALINE 1,000ML 1,000 ML IV SCH (08:15)
[2018-02-25] MEDS: FLUTICASONE 50MCG/NASAL SPRAY 16GM BOTTLE. NS SCH (08:33)
--- NOTE | 2018-02-25 09:47 | PDOC ---
PROGRESS NOTES Diagnosis Problem Problems Medical Problems: (1) Anemia of unknown etiology Status: Acute (2) CHF exacerbation Status: Acute (3) Uncontrolled atrial fibrillation Status: Acute Assessment Problems Medical Problems: (1) Anemia of unknown etiology Status: Acute (2) CHF exacerbation Status: Acute (3) Uncontrolled atrial fibrillation Status: Acute 1. Persistent Atrial fibrillation - rate mildly increased again today. Consider increase oral diltiazem. 2. HTN - bp increasing today. monitor and adjust meds after transferred and settled. 3. Acute on chronic diastolic HF - On nasal cannula oxygen but with continued complaints of dyspnea. Improvement in edema but with increased Cr up to 3.8, lasix held and Cr 3.7 today. 4. NAYELY on CKD - Transferring to [facility] this am for renal and pulmonary evaluation. Subjective better but still appears short of breath, continued edema though significantly improved from admission. no chest pain. Objective Vital Signs Date Time Temp Pulse Resp B/P (MAP) Pulse Ox O2 Delivery O2 Flow Rate FiO2 02/25/18 08:41 Nasal Cannula 2.5 02/25/18 08:08 111 159/74 02/25/18 05:55 97.5 22 92 Intake and Output 02/25/18 07:00 Intake Total 2084 ml Output Total 650 ml Balance 1434 ml Intake Oral 1030 ml IV Total 1054 ml Output Urine Total 650 ml Abdomen: Normal bowel sounds, Soft Heart: Other (IRR without gallops, clicks or rubs) Extremities: Other (+edema but improving) General: Alert, Oriented X3, Cooperative Lungs: Other (expiratory wheezes) Neuro: Normal speech Psych/Mental Status: Mental status NL, Mood NL Review of Relevant I have reviewed the following items yaron (where applicable) has been applied. Labs Laboratory Tests Test 02/24/18 05:42 02/24/18 22:45 02/25/18 05:33 White Blood Count 20.5 x10^3/uL (4.0-11.0) 24.1 x10^3/uL (4.0-11.0) 23.9 x10^3/uL (4.0-11.0) Red Blood Count 3.18 x10^6/uL (4.30-5.70) 3.47 x10^6/uL (4.30-5.70) 3.47 x10^6/uL (4.30-5.70) Hemoglobin 8.9 g/dL (13.0-17.5) 9.6 g/dL (13.0-17.5) 9.6 g/dL (13.0-17.5) Hematocrit 28.5 % (39.0-53.0) 31.1 % (39.0-53.0) 31.4 % (39.0-53.0) Mean Corpuscular Volume 89 fL (79-100) 90 fL (79-100) 91 fL (79-100) Mean Corpuscular Hemoglobin 28 pg (25-35) 28 pg (25-35) 28 pg (25-35) Mean Corpuscular Hemoglobin Concent 31 g/dL (31-37) 31 g/dL (31-37) 31 g/dL (31-37) Red Cell Distribution Width 17.3 % (11.5-14.5) 17.6 % (11.5-14.5) 17.7 % (11.5-14.5) Platelet Count 207 x10^3/uL (140-400) 233 x10^3/uL (140-400) 215 x10^3/uL (140-400) Neutrophils (%) (Auto) 94 % (31-73) 95 % (31-73) Lymphocytes (%) (Auto) 3 % (24-48) 2 % (24-48) Monocytes (%) (Auto) 3 % (0-9) 3 % (0-9) Eosinophils (%) (Auto) 0 % (0-3) 0 % (0-3) Basophils (%) (Auto) 0 % (0-3) 0 % (0-3) Neutrophils # (Auto) 19.3 x10^3uL (1.8-7.7) 22.9 x10^3uL (1.8-7.7) Lymphocytes # (Auto) 0.6 x10^3/uL (1.0-4.8) 0.4 x10^3/uL (1.0-4.8) Monocytes # (Auto) 0.6 x10^3/uL (0.0-1.1) 0.8 x10^3/uL (0.0-1.1) Eosinophils # (Auto) 0.0 x10^3/uL (0.0-0.7) 0.0 x10^3/uL (0.0-0.7) Basophils # (Auto) 0.0 x10^3/uL (0.0-0.2) 0.0 x10^3/uL (0.0-0.2) Segmented Neutrophils % 80 % (35-66) Band Neutrophils % 5 % (0-9) Lymphocytes % 8 % (24-48) Monocytes % 4 % (0-10) Myelocytes % 1 % (0-0) Other Cells % 1 % (0-0) Platelet Estimate Adequate (ADEQUATE) Large Platelets Occ Polychromasia Slight Hypochromasia Slight Basophilic Stippling Present Anisocytosis Slight Target Cells Occ Tear Drop Cells Occ Ovalocytes Occ Schistocytes Occ Sodium Level 142 mmol/L (136-145) 140 mmol/L (136-145) 141 mmol/L (136-145) Potassium Level 4.4 mmol/L (3.5-5.1) 4.5 mmol/L (3.5-5.1) 4.4 mmol/L (3.5-5.1) Chloride Level 102 mmol/L (98-107) 101 mmol/L (98-107) 101 mmol/L (98-107) Carbon Dioxide Level 32 mmol/L (21-32) 30 mmol/L (21-32) 31 mmol/L (21-32) Anion Gap 8 (6-14) 9 (6-14) 9 (6-14) Blood Urea Nitrogen 76 mg/dL (8-26) 87 mg/dL (8-26) 88 mg/dL (8-26) Creatinine 3.6 mg/dL (0.7-1.3) 3.8 mg/dL (0.7-1.3) 3.7 mg/dL (0.7-1.3) Estimated GFR (Cockcroft-Gault) 16.9 15.9 16.4 BUN/Creatinine Ratio 21 (6-20) 23 (6-20) 24 (6-20) Glucose Level 216 mg/dL (70-99) 256 mg/dL (70-99) 246 mg/dL (70-99) Calcium Level 8.3 mg/dL (8.5-10.1) 8.1 mg/dL (8.5-10.1) 8.2 mg/dL (8.5-10.1) Magnesium Level 1.7 mg/dL (1.8-2.4) Total Bilirubin 0.4 mg/dL (0.2-1.0) 0.5 mg/dL (0.2-1.0) 0.5 mg/dL (0.2-1.0) Aspartate Amino Transf (AST/SGOT) 62 U/L (15-37) 57 U/L (15-37) 63 U/L (15-37) Alanine Aminotransferase (ALT/SGPT) 47 U/L (16-63) 61 U/L (16-63) 70 U/L (16-63) Alkaline Phosphatase 94 U/L (46-116) 107 U/L (46-116) 110 U/L (46-116) Total Protein 6.9 g/dL (6.4-8.2) 7.3 g/dL (6.4-8.2) 7.3 g/dL (6.4-8.2) Albumin 3.2 g/dL (3.4-5.0) 3.5 g/dL (3.4-5.0) 3.4 g/dL (3.4-5.0) Albumin/Globulin Ratio 0.9 (1.0-1.7) 0.9 (1.0-1.7) 0.9 (1.0-1.7) Medications Current Medications Furosemide (Lasix) 40 mg 1X ONCE IVP Last administered on 02/19/18at 11:21; Start 02/19/18 at 11:00; Stop 02/19/18 at 11:09; Status DC Albuterol/ Ipratropium (Duoneb) 3 ml 1X ONCE NEB Last administered on at 11:22; Start 02/19/18 at 11:00; Stop 02/19/18 at 11:09; Status DC Digoxin (Lanoxin) 1,000 mcg 1X ONCE IV ; Start 02/19/18 at 11:30; Stop at 11:36; Status DC Digoxin (Lanoxin) 250 mcg 1X ONCE IV Last administered on 02/19/18at 11:49; Start 02/19/18 at 11:45; Stop 02/19/18 at 11:46; Status DC Digoxin (Lanoxin) 250 mcg 1X ONCE IV Last administered on 02/19/18at 15:53; Start 02/19/18 at 12:30; Stop 02/19/18 at 12:32; Status DC Furosemide (Lasix) 40 mg 1X ONCE IVP Last administered on 02/19/18at 12:49; Start 02/19/18 at 12:45; Stop 02/19/18 at 12:46; Status DC Ondansetron HCl (Zofran) 4 mg PRN Q8HRS PRN IV NAUSEA/VOMITING; Start 02/19/18 at 13:45 Ondansetron HCl (Zofran Odt) 4 mg PRN Q8HRS PRN PO NAUSEA/VOMITING; Start 02/19 at 14:15 Acetaminophen (Tylenol) 650 mg PRN Q6HRS PRN PO PAIN; Start 02/19/18 at 15:30 Albuterol Sulfate (Ventolin) 2.5 mg PRN Q4HRS PRN NEB SHORTNESS OF BREATH Last administered on 02/21/18at 03:58; Start 02/19/18 at 15:30; Stop 02/21/18 at 12:05 ; Status DC Diclofenac Sodium (Voltaren) 4 stefani QIDPRN PRN TP PAIN; Start 02/19/18 at 15:30 Ferrous Sulfate (Feosol) 325 mg BID PO Last administered on 02/25/18at 08:05; Start 02/19/18 at 21:00 Albuterol/ Ipratropium (Duoneb) 3 ml Q4HRS NEB ; Start 02/19/18 at 16:00; Stop 02/19/18 at 16:00; Status DC Nystatin (Nystop) 1 stefani BID TP Last administered on 02/24/18at 09:18; Start at 21:00 Allopurinol (Zyloprim) 200 mg DAILY PO Last administered on 02/25/18at 08:05; Start 02/20/18 at 09:00 Aspirin (Children'S Aspirin) 81 mg DAILYWBKFT PO Last administered on at 08:05; Start 02/20/18 at 08:00 Non-Formulary Medication (Budesonide/ Formoterol Fumarate (Symbicort 160-4.5 Mcg Inhaler)) 2 puff BID IH ; Start 02/19/18 at 21:00; Stop 02/19/18 at 21:00; Status DC Non-Formulary Medication (Calcium Carb/ Magnesium Hydrox (Rolaids Chewable Tablet)) 1 each PRN Q8HRS PRN PO DYSPEPSIA; Start 02/19/18 at 15:30; Stop 02/19 at 15:44; Status DC Calcium Carbonate/ Glycine (Tums) 1,500 mg PRN Q8HRS PRN PO INDIGESTION; Start 02/19/18 at 15:45 Artificial Tears (Artificial Tears) 1 drop PRN Q6HRS PRN OU DRY EYE; Start at 16:00; Stop 02/19/18 at 17:45; Status DC Vitamin D (Vitamin D3) 5,000 unit DAILY PO Last administered on 02/25/18at 08:04 ; Start 02/20/18 at 09:00 Pantoprazole Sodium (Protonix) 40 mg DAILYAC PO Last administered on 02/25/18at 08:05; Start 02/20/18 at 07:30 Folic Acid (Folic Acid) 1 mg DAILY PO Last administered on 02/25/18at 08:05; Start 02/20/18 at 09:00 Acetaminophen/ Hydrocodone Bitart (Lortab 5/325) 1 tab PRN Q6HRS PRN PO PAIN; Start 02/19/18 at 16:00 Albumin Human 50 ml @ 50 mls/hr BID IV Last administered on 02/23/18at 17:43; Start 02/19/18 at 21:00; Stop 02/23/18 at 20:11; Status DC Furosemide (Lasix) 40 mg BID IVP Last administered on 02/23/18at 17:43; Start at 09:00; Stop 02/23/18 at 20:11; Status DC Albuterol/ Ipratropium (Duoneb) 3 ml QID NEB Last administered on 02/25/18at 06: 16; Start 02/19/18 at 16:00 Budesonide (Pulmicort) 0.5 mg RTBID NEB Last administered on 02/24/18at 21:33; Start 02/19/18 at 20:00 Amiodarone HCl 900 mg/Dextrose 518 ml @ 0 mls/hr 1X ONCE IV Last administered on 02/19/18at 18:38; Start 02/19/18 at 17:15; Stop 02/19/18 at 17:16; Status DC Diltiazem HCl (Cardizem) 30 mg Q8HRS PO Last administered on 02/22/18at 13:54; Start 02/19/18 at 17:30; Stop 02/22/18 at 15:09; Status DC Artificial Tears (Artificial Tears) 1 drop PRN Q6HRS PRN OU DRY EYE; Start at 18:00 Nitroglycerin (Nitro-Bid Oint) 0.5 inch Q8HRS TP Last administered on 06:03; Start 02/20/18 at 14:30; Stop 02/21/18 at 09:52; Status DC Morphine Sulfate (Morphine 2mg Syringe) 2 mg PRN Q4HRS PRN IV PAIN; Start 02/20 at 14:15; Stop 02/21/18 at 14:36; Status DC Hydralazine HCl (Apresoline) 50 mg Q8HRS PO Last administered on 02/21/18at 09: 40; Start 02/21/18 at 09:22; Stop 02/21/18 at 12:05; Status DC Nitroglycerin/ Dextrose 250 ml @ 0 mls/hr CONT PRN IV PER PROTOCOL Last administered on 02/22/18at 05:15; Start 02/21/18 at 09:30 Methylprednisolone Sodium Succinate (SOLU-Medrol 40MG VIAL) 40 mg Q8HRS IV Last administered on 02/24/18at 14:07; Start 02/21/18 at 09:23; Stop 02/24/18 at 17:05; Status DC Albuterol Sulfate (Ventolin) 2.5 mg PRN Q2HR PRN NEB SHORTNESS OF BREATH Last administered on 02/24/18at 14:07; Start 02/21/18 at 12:15 Hydralazine HCl (Apresoline) 100 mg Q8HRS PO Last administered on 02/25/18 05: 57; Start 02/21/18 at 14:00 Montelukast Sodium (Singulair) 10 mg QHS PO Last administered on 02/24/18at 20: 58; Start 02/21/18 at 21:00 Linezolid 300 ml @ 300 mls/hr Q12H IV Last administered on 02/23/18at 01:35; Start 02/21/18 at 13:00; Stop 02/23/18 at 12:51; Status DC Meropenem 500 mg/ Sodium Chloride 50 ml @ 100 mls/hr Q8HRS IV Last administered on 02/25/18at 05:57; Start 02/21/18 at 14:00 Fluticasone Propionate (Flonase) 2 spray DAILY NS Last administered on at 08:33; Start 02/21/18 at 14:00 Sodium Chloride ([place] Saline Nasal) 1 stefani PRN Q4HRS PRN NS NASAL CONGESTION; Start 02/21/18 at 13:15 Morphine Sulfate (Morphine 4mg Syringe) 2 mg PRN Q4HRS PRN IV PAIN Last administered on 02/22/18at 12:13; Start 02/21/18 at 14:45; Stop 02/22/18 at 12:28 ; Status DC Lactobacillus Rhamnosus (Culturelle) 1 cap BID PO Last administered on at 08:04; Start 02/22/18 at 09:00 Fentanyl Citrate (Fentanyl 2ml Vial) 25 mcg Q3H PRN IV PAIN; Start 02/22/18 at 12:00; Stop 02/22/18 at 12:28; Status DC Alprazolam (Xanax) 0.5 mg PRN Q8HRS PRN PO ANXIETY / AGITATION Last administered on 02/24/18at 14:06; Start 02/22/18 at 12:00 Perflutren Protein Type A Microsphe (Optison) 0.66 mg 1X ONCE IV Last administered on 02/21/18at 16:00; Start 02/21/18 at 16:00; Stop 02/22/18 at 12:11 ; Status DC Morphine Sulfate (Morphine 4mg Syringe) 2 mg PRN Q3HRS PRN IV PAIN Last administered on 02/24/18at 03:19; Start 02/22/18 at 12:15 Diltiazem HCl (Cardizem 24hr Cd) 120 mg 1X ONCE PO Last administered on at 16:17; Start 02/22/18 at 15:30; Stop 02/22/18 at 15:31; Status DC Diltiazem HCl (Cardizem 24hr Cd) 120 mg DAILY PO Last administered on at 08:08; Start 02/23/18 at 09:00 Isosorbide Mononitrate (Imdur) 60 mg 1X ONCE PO Last administered on at 16:19; Start 02/22/18 at 15:30; Stop 02/22/18 at 15:31; Status DC Isosorbide Mononitrate (Imdur) 60 mg DAILY PO Last administered on 02/25/18at 08 :04; Start 02/23/18 at 09:00 Linezolid (Zyvox) 600 mg BID PO Last administered on 02/25/18at 08:09; Start at 21:00 Albumin Human 50 ml @ 50 mls/hr DAILY IV ; Start 02/24/18 at 09:00; Stop at 23:59 Furosemide (Lasix) 40 mg DAILY IVP ; Start 02/24/18 at 09:00; Stop 02/24/18 at 11:24; Status DC Sodium Chloride 1,000 ml @ 100 mls/hr 1X ONCE IV Last administered on at 14:10; Start 02/24/18 at 13:30; Stop 02/24/18 at 23:29; Status DC Methylprednisolone Sodium Succinate (SOLU-Medrol 40MG VIAL) 40 mg Q12H IV Last administered on 02/25/18at 02:12; Start 02/25/18 at 02:00 Sodium Chloride 1,000 ml @ 100 mls/hr Q10H IV Last administered on 02/25/18at 08:37; Start 02/25/18 at 08:15 Active Scripts Active Reported Levaquin (Levofloxacin) 500 Mg Tablet 1 Tab PO DAILY 7 Days Zoloft (Sertraline Hcl) 25 Mg Tablet 3 Tab PO DAILY Nystatin 15 Gm Powder 1 Stefani TP BID Cortef (Hydrocortisone) 10 Mg Tablet 30 Mg PO DAILY Tizanidine Hcl (Tizanidine HCl) 4 Mg Tablet 4 Mg PO PRN QHS PRN Voltaren (Diclofenac Sodium) 100 Gm Gel..gram. 4 Gm TP QIDPRN PRN Vitamin D3 (Cholecalciferol (Vitamin D3)) 5,000 Unit Tablet 5,000 Unit PO DAILY Calci-Chew (Calcium Carbonate) 500 Mg Tab.chew 1,500 Mg PO PRN Q8HRS PRN Tizanidine Hcl (Tizanidine HCl) 4 Mg Tablet 4 Mg PO BID Saline Nasal Dendron (Sodium Chloride) 30 Ml Dendron 1-2 Spr NS PRN Q3HRS Rolaids Chewable Tablet (Calcium Carb/Magnesium Hydrox) 1 Each Tab.chew 1 Each PO PRN Q8HRS PRN [place] 5-325 Tablet (Hydrocodone Bit/Acetaminophen) 1 Each Tablet 1 Tab PO PRN Q6HRS PRN Nexium Capsule (Esomeprazole Magnesium) 40 Mg Capsule.dr 40 Mg PO DAILYAC Milk Of Magnesia (Magnesium Hydroxide) 2,400 Mg/10 Ml Oral.susp 2,400 Mg PO PRN Q24HRS PRN Metoprolol Tartrate 50 Mg Tablet 50 Mg PO BID Incruse Ellipta (Umeclidinium [place]) 62.5 Mcg Blst.w.dev 62.5 Mcg IH DAILY Duoneb 0.5-3(2.5) Mg/3 Ml (Albuterol/Ipratropium) 3 Ml Ampul.neb 3 Ml NEB Q4HRS Ferrous Sulfate 325 Mg Tablet 325 Mg PO BID Cough Drops (Menthol) 5 Mg Lozenge 5 Mg MM PRN Q4HRS PRN Lubricant Eye Drops (Carboxymethylcellulose Sodium) 15 Ml Drops 15 Ml OP PRN Q6HRS PRN Bumetanide 1 Mg Tablet 1 Mg PO BID Tylenol (Acetaminophen) 325 Mg Tablet 2 Tab PO PRN Q6HRS PRN Oxycodone Hcl 5 Mg Tablet 10 Mg PO PRN Nitrostat (Nitroglycerin) 0.4 Mg Tab.subl 0.4 Mg SL PRN Imodium A-D (Loperamide Hcl) 1 Mg/7.5 Ml Liquid 2 Mg PO PRN Symbicort 160-4.5 Mcg Inhaler (Budesonide/Formoterol Fumarate) 10.2 Gm Hfa.aer.ad 2 Puff IH BID Allopurinol 100 Mg Tablet 200 Mg PO DAILY Thiamine Hcl 100 Mg Tablet 100 Mg PO Folic Acid 1 Mg Tablet 1 Tab PO DAILY Aspirin 81 Mg Tab.chew 81 Mg PO DAILY Albuterol Sulfate Neb Soln (Albuterol Sulfate) 2.5 Mg/3 Ml Vial.neb 1 Vial NEB PRN Q4HRS Vitals/I & O Vital Sign - Last 24 Hours 02/24/18 02/24/18 02/24/18 02/24/18 14:12 15:15 19:56 20:25 Temp 98.0 97.5 Pulse 101 104 Resp 22 18 B/P (MAP) 125/69 (87) 138/70 (92) Pulse Ox 93 95 94 96 O2 Delivery Nasal Cannula Nasal Cannula Nasal Cannula Nasal Cannula O2 Flow Rate 2.5 2.5 2.5 2.5 02/24/18 02/24/18 02/24/18 02/25/18 20:31 22:24 23:47 05:12 Temp 97.9 Pulse 104 91 Resp 18 B/P (MAP) 138/70 135/74 (94) Pulse Ox 96 92 94 O2 Delivery Nasal Cannula Nasal Cannula Nasal Cannula O2 Flow Rate 2.5 2.5 2.5 02/25/18 02/25/18 02/25/18 02/25/18 05:55 05:57 08:04 08:08 Temp 97.5 Pulse 111 111 111 111 Resp 22 B/P (MAP) 159/74 (102) 159/74 159/74 159/74 Pulse Ox 92 O2 Delivery Nasal Cannula O2 Flow Rate 2.5 02/25/18 08:41 O2 Delivery Nasal Cannula O2 Flow Rate 2.5 Intake and Output 02/24/18 02/24/18 02/25/18 15:00 23:00 07:00 Intake Total 400 ml 710 ml 974 ml Output Total 650 ml Balance -250 ml 710 ml 974 ml NUSRAT RICHARDS APRN February 25, 2018 09:47
[2018-02-25 09:58] VITALS: BP 145/55
[2018-02-25] MEDS: ALPRAZolam 0.5 MG TABLET PO PRN (10:25)
== END 2018-02-25 11:00 | disposition short-term general hospital (02) | DRG 291 ==
LOC: ER 10:46 → ICU 12:00 → 1 SOUTH 02-24 12:21
PROVIDERS: ADMIT Internal Medicine; ATTEND Internal Medicine
PROC: 5A09357 Assistance with Respiratory Ventilation, Less than 24 Consecutive Hours, Continuous Positive Airway Pressure (ICD-10-PCS; principal; 2018-02-22)
PROC: 5A09357 Assistance with Respiratory Ventilation, Less than 24 Consecutive Hours, Continuous Positive Airway Pressure (ICD-10-PCS; 2018-02-23)
DX: I13.0 Hypertensive heart and chronic kidney disease with heart failure and stage 1 through stage 4 chronic kidney disease, or unspecified chronic kidney disease (principal); I50.43 Acute on chronic combined systolic (congestive) and diastolic (congestive) heart failure; J96.01 Acute respiratory failure with hypoxia; E43 Unspecified severe protein-calorie malnutrition; N17.9 Acute kidney failure, unspecified; E11.22 Type 2 diabetes mellitus with diabetic chronic kidney disease; I48.1 Persistent atrial fibrillation; E11.51 Type 2 diabetes mellitus with diabetic peripheral angiopathy without gangrene; N18.4 Chronic kidney disease, stage 4 (severe); Z68.42 Body mass index [BMI] 45.0-49.9, adult; F32.9 Major depressive disorder, single episode, unspecified; M10.9 Gout, unspecified; D64.9 Anemia, unspecified; J98.01 Acute bronchospasm; E66.01 Morbid (severe) obesity due to excess calories; J44.9 Chronic obstructive pulmonary disease, unspecified; I27.20 Pulmonary hypertension, unspecified; G89.29 Other chronic pain; Z66 Do not resuscitate; Z74.01 Bed confinement status; Z86.14 Personal history of Methicillin resistant Staphylococcus aureus infection; Z99.81 Dependence on supplemental oxygen; Z87.891 Personal history of nicotine dependence; Z88.0 Allergy status to penicillin; Z86.19 Personal history of other infectious and parasitic diseases; Z88.1 Allergy status to other antibiotic agents; Z79.899 Other long term (current) drug therapy
CPT/HCPCS: 51702; 99291; C8929; 36415; 36600; 71045; 80048; 80053; 81001; 82274; 82803; 83735; 83880; 84484; 85007; 85025; 85027; 87641; 93005; 94640; 94660; 96374; 96375; 96376; J0282; J1160; J1940; J2020; J2185; J2270; J2920; J3490; J7613; J7620; J7626; P9046; Q9956; J7030